=== PATIENT | male | born 1975 | race Caucasian/White ===

== ENCOUNTER → 2017-09-10 07:36 | Outpatient (CLI) | payer OTHER, SELFPAY ==
[2017-09-10 10:31] LABS: Absolute Lymphocyte Count 1.64 X10^3/ul (0.83-4.51); Absolute Neutrophil Count 3.1 X10^3/uL (2.0-7.7); Basophil# 0.03 X10^3/uL; Basophil% 0.5 % (0-1); Eosinophil# 0.26 X10^3/uL; Eosinophils% 4.6 % (0-5); Hematocrit 43.9 % (40-54); Hemoglobin 15.3 g/dl (13.0-16.5); Lymphocyte # 1.64 X10^3/ul (4.0); Lymphocyte % 29.3 % (19-41); Mean Corp Hgb Conc 34.9 g/gl (32-36); Mean Corpuscular Hgb 31.5 pg (27.0-32.0); Mean Corpuscular Volume 90.5 fL (80-94); Mean Platelet Vol. 11.1 fl (6.2-12.0); Monocyte# 0.55 X10^3/uL; Monocyte% 9.8 % (0-10); Neutrophil # 3.12 X10^3/uL (2.7-7.7); Neutrophil % 55.8 % (47-70); Platelet Count 193 K/mm3 (150-450); RBC Distribution Width CV 13.7 % (11.6-14.6); RBC Distribution Width SD 45.1 fl (35.1-43.9); Red Blood Count 4.85 M/mm3 (4.6-6.2); White Blood Count 5.6 K/mm3 (4.4-11.0)
[2017-09-10 10:47] LABS: Color, Urine Yellow (Yellow); Glucose, Dipstick Normal (Normal); Ketone-Dipstick Negative (Negative); Leukocyte Esterase-Dipstick 25 /ul (Negative); Nitrite-Dipstick Negative (Negative); Occult Blood-Urine Negative /ul (Negative); Protein-Dipstick Negative (Negative); Specific Gravity, Urine 1.015 (1.002-1.030); Urine Bilirubin Dipstick Negative (Negative); Urine Clarity Sl. Cloudy (Clear); Urine Urobilinogen 4 mg/dl (Normal)
[2017-09-10 11:13] LABS: POSITIVE COUNT NO; POSITIVE DIFFERENTIAL NO; POSITIVE MORPHOLOGY NO
[2017-09-10 11:19] LABS: AST(SGOT) 44 U/L (15-37); Alanine Aminotransfer ALT/SGPT 66 U/L (16-61); Albumin, Serum 3.4 g/dL (3.2-5.0); Alkaline Phosphatase 62 U/L (45-117); Anion Gap 7 (5-15); BUN 11 mg/dL (7-18); BUN/Creat Ratio 11.5 RATIO (10-20); Calcium,Total 8.5 mg/dL (8.5-10.1); Chloride 108 mmol/L (98-107); Cholesterol 126 mg/dL (200); Creatinine, Serum 0.96 mg/dL (0.70-1.30); EST Glomerular Filtration Rate 91 mL/min (>60); Est Glom Filt Rate - Afr Amer 110 mL/min (>60); Globulin 3.4 g/dL (2.2-4.2); Glucose 101 mg/dL (74-106); High Density Lipoprotein 33 mg/dL; Potassium 3.5 mmol/L (3.5-5.1); Protein, Total 6.8 g/dL (6.4-8.2); Sodium Level 141 mmol/L (136-145); Thyroid Stim Hormone (TSH) 2.93 uIU/mL (0.358-3.74); Triglycerides 194 mg/dL; Very Low Density Lipoprotein 39 mg/dL (5-40)
== END ==
PROVIDERS: Family Provider Family Medicine; PCP Family Medicine; Visit Provider Family Medicine
DX: Z00.00 Encounter for general adult medical examination without abnormal findings (principal); I10 Essential (primary) hypertension; E03.9 Hypothyroidism, unspecified; D50.9 Iron deficiency anemia, unspecified
CPT/HCPCS: 36415; 80053; 80061; 81002; 84443; 85025

== ENCOUNTER → 2019-03-30 08:03 | Outpatient (CLI) | payer OTHER, SELFPAY ==
[2014-08-23 12:44] VITALS: BMI 30.6
[2019-03-30 10:04] LABS: Color, Urine Yellow (Yellow); Glucose, Dipstick Normal (Normal); Ketone-Dipstick Negative (Negative); Leukocyte Esterase-Dipstick Negative /ul (Negative); Nitrite-Dipstick Negative (Negative); Occult Blood-Urine Negative /ul (Negative); Protein-Dipstick Negative (Negative); Specific Gravity, Urine 1.015 (1.002-1.030); Urine Bilirubin Dipstick Negative (Negative); Urine Clarity Sl. Cloudy (Clear); Urine Urobilinogen 4 mg/dl (Normal); Urine pH 6.5 (5.0 - 8.0)
[2019-03-30 10:10] LABS: Absolute Lymphocyte Count 1.89 X10^3/uL (0.83-4.51); Absolute Neutrophil Count 3.7 X10^3/uL (2.0-7.7); Basophil# 0.05 X10^3/uL; Basophil% 0.8 % (0-1); Eosinophil# 0.25 X10^3/uL; Hematocrit 43.7 % (40-54); Hemoglobin 14.6 g/dL (13.0-16.5); Lymphocyte # 1.89 X10^3/ul (4.0); Mean Corp Hgb Conc 33.4 g/dL (32-36); Mean Corpuscular Hgb 32.3 pg (27.0-32.0); Mean Corpuscular Volume 96.7 fL (80-94); Mean Platelet Vol. 9.8 fl (6.2-12.0); Monocyte# 0.42 X10^3/uL; Monocyte% 6.7 % (0-10); NRBC Flagged by Analyzer 0 % (0-5); Neutrophil # 3.68 X10^3/uL (2.7-7.7); Neutrophil % 58.2 % (47-70); Platelet Count 221 K/mm3 (150-450); RBC Distribution Width CV 14.7 % (11.6-14.6); RBC Distribution Width SD 52.1 fl (35.1-43.9); Red Blood Count 4.52 M/mm3 (4.6-6.2); White Blood Count 6.3 K/mm3 (4.4-11.0)
[2019-03-30 10:46] LABS: ALB/GLOB Ratio 1.1 RATIO (0.9-2.4); AST(SGOT) 41 U/L (15-37); Alanine Aminotransfer ALT/SGPT 58 U/L (16-61); Albumin, Serum 3.6 g/dL (3.2-5.0); Alkaline Phosphatase 58 U/L (45-117); Anion Gap 3 (5-15); BUN 10 mg/dL (7-18); BUN/Creat Ratio 10.7 RATIO (10-20); Calcium,Total 8.6 mg/dL (8.5-10.1); Chloride 108 mmol/L (98-107); Cholesterol 149 mg/dL (200); Creatinine, Serum 0.93 mg/dL (0.70-1.30); EST Glomerular Filtration Rate 93 mL/min (>60); Est Glom Filt Rate - Afr Amer 112 mL/min (>60); Globulin 3.2 g/dL (2.2-4.2); Glucose 103 mg/dL (74-106); High Density Lipoprotein 33 mg/dL; Iron 127 ug/dL (65-175); Potassium 3.7 mmol/L (3.5-5.1); Protein, Total 6.8 g/dL (6.4-8.2); Sodium Level 141 mmol/L (136-145); Thyroid Stim Hormone (TSH) 2.55 uIU/mL (0.358-3.74); Triglycerides 127 mg/dL; Very Low Density Lipoprotein 25 mg/dL (5-40)
== END ==
PROVIDERS: Family Provider Family Medicine; PCP Family Medicine; Referring Provider Family Medicine; Visit Provider Family Medicine
DX: Z00.00 Encounter for general adult medical examination without abnormal findings (principal); I10 Essential (primary) hypertension; E78.6 Lipoprotein deficiency; D50.9 Iron deficiency anemia, unspecified; E03.9 Hypothyroidism, unspecified
CPT/HCPCS: 36415; 80053; 80061; 81002; 83540; 84443; 85025

== ENCOUNTER → 2021-01-09 08:28 | Outpatient (CLI) | payer OTHER, SELFPAY ==
[2021-01-09 09:58] LABS: Absolute Lymphocyte Count 1.55 X10^3/uL (0.83-4.51); Absolute Neutrophil Count 3.7 X10^3/uL (2.0-7.7); Basophil# 0.06 X10^3/uL; Eosinophil# 0.31 X10^3/uL; Hematocrit 39.6 % (40-54); Hemoglobin 13.6 g/dL (13.0-16.5); Lymphocyte # 1.55 X10^3/ul (0.83-4.51); Lymphocyte % 25.1 % (19-41); Mean Corp Hgb Conc 34.3 g/dL (32-36); Mean Corpuscular Volume 113.5 fL (80-94); Mean Platelet Vol. 10.7 fl (6.2-12.0); Monocyte# 0.54 X10^3/uL; Monocyte% 8.8 % (0-10); NRBC Flagged by Analyzer 0 % (0-5); Neutrophil # 3.69 X10^3/uL (2.7-7.7); Neutrophil % 59.8 % (47-70); Platelet Count 240 K/mm3 (150-450); Red Blood Count 3.49 M/mm3 (4.6-6.2); White Blood Count 6.2 K/mm3 (4.4-11.0)
[2021-01-09 10:37] LABS: ALB/GLOB Ratio 1.1 RATIO (0.9-2.4); AST(SGOT) 45 U/L (15-37); Alanine Aminotransfer ALT/SGPT 54 U/L (16-61); Albumin, Serum 3.5 g/dL (3.2-5.0); Alkaline Phosphatase 54 U/L (45-117); Anion Gap 7 (5-15); BUN 10 mg/dL (7-18); BUN/Creat Ratio 12.4 RATIO (10-20); Calcium,Total 8.5 mg/dL (8.5-10.1); Chloride 110 mmol/L (98-107); Cholesterol 148 mg/dL (200); Creatinine, Serum 0.81 mg/dL (0.70-1.30); EST Glomerular Filtration Rate 109 mL/min (>60); Est Glom Filt Rate - Afr Amer 132 mL/min (>60); Globulin 3.3 g/dL (2.2-4.2); Glucose 88 mg/dL (74-106); High Density Lipoprotein 34 mg/dL; Potassium 3.6 mmol/L (3.5-5.1); Protein, Total 6.8 g/dL (6.4-8.2); Sodium Level 145 mmol/L (136-145); Triglycerides 110 mg/dL; Very Low Density Lipoprotein 22 mg/dL (5-40)
== END ==
PROVIDERS: PCP Family Medicine; Referring Provider Family Medicine; Visit Provider Family Medicine
DX: I10 Essential (primary) hypertension (principal); E78.6 Lipoprotein deficiency; E03.9 Hypothyroidism, unspecified; D50.9 Iron deficiency anemia, unspecified
CPT/HCPCS: 36415; 80053; 80061; 84443; 85025

== ENCOUNTER 2021-07-09 08:26 | Outpatient (CLI) | payer OTHER, SELFPAY ==
[2021-07-09 10:12] LABS: Absolute Lymphocyte Count 1.55 X10^3/uL (0.83-4.51); Absolute Neutrophil Count 3.5 X10^3/uL (2.0-7.7); Basophil# 0.07 X10^3/uL; Basophil% 1.2 % (0-1); Eosinophil# 0.23 X10^3/uL; Eosinophils% 3.9 % (0-5); Hematocrit 46.1 % (40-54); Hemoglobin 15.8 g/dL (13.0-16.5); Lymphocyte # 1.55 X10^3/ul (0.83-4.51); Lymphocyte % 26.3 % (19-41); Mean Corp Hgb Conc 34.3 g/dL (32-36); Mean Corpuscular Hgb 31.3 pg (27.0-32.0); Mean Corpuscular Volume 91.5 fL (80-94); Mean Platelet Vol. 10.6 fl (6.2-12.0); Monocyte# 0.56 X10^3/uL; Monocyte% 9.5 % (0-10); NRBC Flagged by Analyzer 0 % (0-5); Neutrophil # 3.48 X10^3/uL (2.7-7.7); Neutrophil % 58.9 % (47-70); Platelet Count 221 K/mm3 (150-450); RBC Distribution Width CV 14.4 % (11.6-14.6); RBC Distribution Width SD 48.7 fl (35.1-43.9); Red Blood Count 5.04 M/mm3 (4.6-6.2); White Blood Count 5.9 K/mm3 (4.4-11.0)
[2021-07-09 10:50] LABS: ALB/GLOB Ratio 1.1 RATIO (0.9-2.4); AST(SGOT) 39 U/L (15-37); Alanine Aminotransfer ALT/SGPT 54 U/L (16-61); Albumin, Serum 3.5 g/dL (3.2-5.0); Alkaline Phosphatase 51 U/L (45-117); Anion Gap 4 (5-15); BUN 13 mg/dL (7-18); BUN/Creat Ratio 14.3 RATIO (10-20); Calcium,Total 8.6 mg/dL (8.5-10.1); Chloride 110 mmol/L (98-107); Cholesterol 148 mg/dL (200); Creatinine, Serum 0.91 mg/dL (0.70-1.30); EST Glomerular Filtration Rate 95 mL/min (>60); Est Glom Filt Rate - Afr Amer 114 mL/min (>60); Globulin 3.3 g/dL (2.2-4.2); Glucose 106 mg/dL (74-106); High Density Lipoprotein 31 mg/dL; Iron 118 ug/dL (65-175); PSA,Total - Annual Screen 2.21 ng/mL (0.00-4.00); Potassium 3.6 mmol/L (3.5-5.1); Protein, Total 6.8 g/dL (6.4-8.2); Sodium Level 140 mmol/L (136-145); Thyroid Stim Hormone (TSH) 2.57 uIU/mL (0.358-3.74); Triglycerides 218 mg/dL; Very Low Density Lipoprotein 44 mg/dL (5-40)
== END 2021-07-09 23:59 | disposition home or self-care (01) ==
LOC: MTLAB 08:29
PROVIDERS: PCP Family Medicine; Referring Provider Family Medicine; Visit Provider Family Medicine
DX: Z00.00 Encounter for general adult medical examination without abnormal findings (principal); D50.9 Iron deficiency anemia, unspecified; I10 Essential (primary) hypertension; E78.6 Lipoprotein deficiency; D75.89 Other specified diseases of blood and blood-forming organs; Z12.5 Encounter for screening for malignant neoplasm of prostate
CPT/HCPCS: 36415; 80053; 80061; 83540; 84153; 84443; 85025; G0103

== ENCOUNTER → 2022-09-19 | Outpatient (CLI) | payer OTHER, SELFPAY ==
[2022-09-19 10:22] LABS: Absolute Lymphocyte Count 1.75 X10^3/uL (0.83-4.51); Absolute Neutrophil Count 2.9 X10^3/uL (2.0-7.7); Basophil# 0.06 X10^3/uL; Basophil% 1.1 % (0-1); Eosinophils% 5.4 % (0-5); Hematocrit 42.1 % (40-54); Hemoglobin 14.8 g/dL (13.0-16.5); Lymphocyte # 1.75 X10^3/ul (0.83-4.51); Lymphocyte % 31.6 % (19-41); Mean Corp Hgb Conc 35.2 g/dL (32-36); Mean Corpuscular Hgb 35.6 pg (27.0-32.0); Mean Corpuscular Volume 101.2 fL (80-94); Mean Platelet Vol. 10.6 fl (6.2-12.0); Monocyte# 0.53 X10^3/uL; Monocyte% 9.6 % (0-10); NRBC Flagged by Analyzer 0 % (0-5); Neutrophil # 2.89 X10^3/uL (2.7-7.7); Neutrophil % 52.3 % (47-70); Platelet Count 215 K/mm3 (150-450); RBC Distribution Width CV 15.8 % (11.6-14.6); RBC Distribution Width SD 58.3 fl (35.1-43.9); Red Blood Count 4.16 M/mm3 (4.6-6.2); White Blood Count 5.5 K/mm3 (4.4-11.0)
[2022-09-19 11:03] LABS: ALB/GLOB Ratio 1.2 RATIO (0.9-2.4); AST(SGOT) 38 U/L (15-37); Alanine Aminotransfer ALT/SGPT 43 U/L (16-61); Albumin, Serum 3.6 g/dL (3.2-5.0); Alkaline Phosphatase 51 U/L (45-117); Anion Gap 3 (5-15); BUN 11 mg/dL (7-18); BUN/Creat Ratio 12.8 RATIO (10-20); Calcium,Total 8.6 mg/dL (8.5-10.1); Chloride 111 mmol/L (98-107); Cholesterol 118 mg/dL (200); Creatinine, Serum 0.86 mg/dL (0.70-1.30); EST Glomerular Filtration Rate 101 mL/min (>60); Est Glom Filt Rate - Afr Amer 122 mL/min (>60); Globulin 3.1 g/dL (2.2-4.2); Glucose 98 mg/dL (74-106); High Density Lipoprotein 33 mg/dL; Potassium 3.8 mmol/L (3.5-5.1); Protein, Total 6.7 g/dL (6.4-8.2); Sodium Level 142 mmol/L (136-145); Thyroid Stim Hormone (TSH) 7.78 uIU/mL (0.358-3.74); Triglycerides 110 mg/dL; Very Low Density Lipoprotein 22 mg/dL (5-40)
== END | disposition home or self-care (01) ==
LOC: MTLAB 07:35
PROVIDERS: PCP Family Medicine; Referring Provider Family Medicine; Visit Provider Family Medicine
DX: Z00.00 Encounter for general adult medical examination without abnormal findings (principal); I10 Essential (primary) hypertension; E03.9 Hypothyroidism, unspecified
CPT/HCPCS: 36415; 80053; 80061; 84443; 85025

== ENCOUNTER → 2022-10-31 | Outpatient (CLI) | payer OTHER, SELFPAY ==
--- NOTE | 2022-10-31 08:23 | MRI_ITS ---
STUDY: MRI RIGHT FOREFOOT WITHOUT CONTRAST REASON FOR EXAM: Male, 47 years old. Pain in first and second toe in the plantar region. TECHNIQUE: Standardized fat and water weighted pulse sequences were obtained in all 3 orthogonal planes. COMPARISON: None. 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 Minimal hallux valgus deformity (coronal series 6 images 12-19). Focal bone marrow edema in the tibial sesamoid (axial series 9 images 15-18). Normal interphalangeal joint of the hallux. Normal proximal and distal phalanges of the great toe. Normal medial and lateral heads of the flexor hallucis brevis tendons. Normal flexor and extensor hallucis longus tendons. Mild arthrosis of the MTP and IP joints of the second through fifth digits with hammertoe deformities. Ganglion cyst lateral to the second MTP joint (coronal series 6 image 12). Normal first through fourth intermetatarsal spaces. Normal flexor and extensor tendons of the second through fifth toes. Normal visualized metatarsi. Normal intrinsic muscles of the forefoot. No soft tissue abnormality. 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 Bone marrow edema in the tibial sesamoid which may be secondary to stress-related changes. Mild arthrosis of the MTP and IP joints of the second through fifth digits with hammertoe deformities. Small ganglion cyst lateral to the second MTP joint. No other abnormality. Electronically Signed: Moe Valerio MD at 12:19 EDT ,
== END | disposition home or self-care (01) ==
PROVIDERS: PCP Family Medicine; Referring Provider Podiatrist; Visit Provider Podiatrist
DX: S89.91XA Unspecified injury of right lower leg, initial encounter (principal); M79.671 Pain in right foot
CPT/HCPCS: 73718

== ENCOUNTER → 2022-12-16 | Outpatient (CLI) | payer OTHER, SELFPAY ==
[2022-12-16 16:19] LABS: Thyroid Stim Hormone (TSH) 4.65 uIU/mL (0.358-3.74)
== END | disposition home or self-care (01) ==
PROVIDERS: PCP Family Medicine; Referring Provider Family Medicine; Visit Provider Family Medicine
DX: E03.9 Hypothyroidism, unspecified (principal)
CPT/HCPCS: 36415; 84439; 84443

== ENCOUNTER → 2023-01-16 | Outpatient (CLI) | payer OTHER, SELFPAY ==
--- NOTE | 2023-01-16 10:39 | RAD_ITS ---
STUDY: X-RAY - LEFT SHOULDER REASON FOR EXAM: Male, 47 years old. Pain in shoulders with overhead motion. TECHNIQUE: 4 views of the left shoulder. COMPARISON: None. FINDINGS: Normal glenohumeral articulation. There is hypertrophic acromioclavicular arthrosis. Normal acromion. Normal humeral head and visualized proximal humerus. The soft tissue structures are unremarkable. There is no demonstrated fracture. Normal visualized pulmonary apex. RAD/Shoulder min 2 Views IMPRESSION: Hypertrophic acromioclavicular arthrosis. Electronically Signed: Donald Barahona MD at 11:41 EDT ,
--- NOTE | 2023-01-16 10:39 | RAD_ITS ---
STUDY: X-RAY - RIGHT SHOULDER REASON FOR EXAM: Male, 47 years old. Pain in shoulders with overhead motion. TECHNIQUE: 4 views of the right shoulder. COMPARISON: None. FINDINGS: Normal glenohumeral articulation. There is hypertrophic acromioclavicular arthrosis. Normal acromion. Normal humeral head and visualized proximal humerus. The soft tissue structures are unremarkable. There is no demonstrated fracture. Normal visualized pulmonary apex. RAD/Shoulder min 2 Views IMPRESSION: Hypertrophic acromioclavicular arthrosis. Electronically Signed: Donald Barahona MD at 11:43 EDT ,
== END | disposition home or self-care (01) ==
LOC: MTRAD 10:38
PROVIDERS: PCP Family Medicine; Referring Provider Family Medicine; Visit Provider Family Medicine
DX: M25.511 Pain in right shoulder (principal); M25.512 Pain in left shoulder
CPT/HCPCS: 73030

== ENCOUNTER → 2023-03-03 | Outpatient (CLI) | payer OTHER, SELFPAY ==
[2023-03-03 11:01] LABS: Absolute Lymphocyte Count 2.13 X10^3/uL (0.83-4.51); Absolute Neutrophil Count 5.3 X10^3/uL (2.0-7.7); Basophil# 0.06 X10^3/uL; Basophil% 0.7 % (0-1); Eosinophil# 0.09 X10^3/uL; Eosinophils% 1.1 % (0-5); Hematocrit 48.1 % (40-54); Hemoglobin 15.9 g/dL (13.0-16.5); Lymphocyte # 2.13 X10^3/ul (0.83-4.51); Lymphocyte % 25.9 % (19-41); Mean Corp Hgb Conc 33.1 g/dL (32-36); Mean Corpuscular Volume 102.8 fL (80-94); Mean Platelet Vol. 10.2 fl (6.2-12.0); Monocyte% 7.3 % (0-10); NRBC Flagged by Analyzer 0 % (0-5); Neutrophil # 5.29 X10^3/uL (2.7-7.7); Neutrophil % 64.5 % (47-70); Platelet Count 223 K/mm3 (150-450); RBC Distribution Width CV 13.7 % (11.6-14.6); RBC Distribution Width SD 52.4 fl (35.1-43.9); Red Blood Count 4.68 M/mm3 (4.6-6.2); White Blood Count 8.2 K/mm3 (4.4-11.0)
[2023-03-03 11:52] LABS: ALB/GLOB Ratio 1.2 RATIO (0.9-2.4); AST(SGOT) 29 U/L (15-37); Alanine Aminotransfer ALT/SGPT 45 U/L (16-61); Albumin, Serum 3.8 g/dL (3.2-5.0); Alkaline Phosphatase 67 U/L (45-117); Anion Gap 4 (5-15); BUN 12 mg/dL (7-18); BUN/Creat Ratio 13.2 RATIO (10-20); Calcium,Total 8.9 mg/dL (8.5-10.1); Chloride 106 mmol/L (98-107); Creatinine, Serum 0.91 mg/dL (0.70-1.30); EST Glomerular Filtration Rate 95 mL/min (>60); Est Glom Filt Rate - Afr Amer 115 mL/min (>60); Globulin 3.3 g/dL (2.2-4.2); Glucose 77 mg/dL (74-106); Potassium 3.9 mmol/L (3.5-5.1); Protein, Total 7.1 g/dL (6.4-8.2); Sodium Level 140 mmol/L (136-145)
== END | disposition home or self-care (01) ==
PROVIDERS: PCP Family Medicine; Referring Provider Family Medicine; Visit Provider Family Medicine
DX: Z01.818 Encounter for other preprocedural examination (principal)
CPT/HCPCS: 36415; 80053; 85025

== ENCOUNTER 2023-03-28 06:06 | Day surgery (SDC) | payer OTHER, SELFPAY ==
[2023-03-28] VITALS (9 sets, daily range): BP systolic 125–171; BP diastolic 71–108; PULSE 17–83; RESP 16–88; TEMP 36.1–36.6; O2SAT 94–97; BMI 34.1
--- OUTSIDE RECORDS SUMMARY | 2023-03-28 06:09 | XMS RPT_ITS | CCD ---
Author Name Unknown Address [address] [place] [address] Organization [facility] Care Team Providers Care Plaster Machine Tender Name Role Phone Anup Lewis MD Primary Care Provider Medications Completed/Discontinued Medications Medication Drug Class(es) Dates Sig (Normalized) Sig (Original) codeine phosphate 2 mg/ml / guaiFENesin 20 mg/ml oral solution (8 sources) Opioid Agonist Start: 06-02-2015 take 5-10 mL by mouth four times daily as needed for cough codeine-guaiFENesi n (ROBITUSSIN AC) 10-100 mg/5 mL syrup Indications: Viral URI with cough Take 5-10 mL by mouth four times daily as needed for Cough. May cause drowsiness. 120 mL 0 04/07/2016 Active Problems Active Problems Problem Classification Problem Date Documented Da te Episodic/Chronic Essential hypertension (4 sources) Hypertensive disorder; Translations: [Essential (primary) hypertension] Onset: 08-19-2014 08-19-2014 Chronic Other endocrine disorders (4 sources) Testicular hypofunction; Translations: [Testicular hypofunction] Onset: 03-05-2005 03-05-2005 Chronic Other upper respiratory disease (4 sources) Allergic rhinitis; Translations: [Allergic rhinitis, unspecified] 12-19-2004 Chronic Substance-related disorders (4 sources) Tobacco user; Translations: [Nicotine dependence, unspecified, uncomplicated] 12-19-2004 Chronic Thyroid disorders (5 sources) Hypothyroidism; Translations: [Hypothyroidism, unspecified] Onset: 08-19-2014 08-19-2014 Chronic Past or Other Problems Problem Classification Problem Date Documented Da te Episodic/Chronic Abdominal pain (4 sources) Abdominal pain; Translations: [Unspecified abdominal pain] Onset: 08-19-2014 08-19-2014 Episodic Biliary tract disease (4 sources) Cholecystitis; Translations: [Cholecystitis, unspecified] Onset: 08-29-2014 08-29-2014 Episodic Contraceptive and procreative management (4 sources) Patient encounter status; Translations: [Encounter for sterilization] Onset: 11-14-2008 11-14-2008 Episodic Results Test Name Value Interpretation Reference Range Facil ity Vital Signs Date Time Vital Sign Value Performing Clinician Faci lity 06-11-2021 16:52-0400 Body temperature 97.81 [degF] Anup Lewis MD Work Phone: [facility] 06-11-2021 16:52-0400 Body weight 126.61 kg Anup Lewis MD Work Phone: [facility] 06-11-2021 16:52-0400 Diastolic blood pressure 71 mm[Hg] Anup Lewis MD Work Phone: [facility] 06-11-2021 16:52-0400 Heart rate 79 /min Anup Lewis MD Work Phone: [facility] 06-11-2021 16:52-0400 Respiratory rate 14 /min Anup Lewis MD Work Phone: [facility] 06-11-2021 16:52-0400 Systolic blood pressure 135 mm[Hg] Anup Lewis MD Work Phone: [facility] Encounters Encounter Date Encounter Type Care Provider Facility Start: 08-05-2022 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 Work Phone: Pain Management Plan of Treatment Date Care Activity Detail Author Start: 11-29-2022 Influenza vaccination INFLUENZA (Sea son Ended) [facility] Start: 03-31-2022 [facility] Start: 11-29-2021 Influenza vaccination INFLUENZA (#1) [facility] Start: 03-31-2021 [facility] Start: 2019 COLOGUARD (FIT-DNA) COLOGUARD (FIT-D NA) [facility] Start: 2019 Colonoscopy COLONOSCOPY [facility] Start: 2019 COLORECTAL CANCER SCREENING COLORECTAL CANCER SCREENING [facility] Start: [address] COLONOGRAPHY [facility] Start: 2019 DIABETES SCREEN DIABETES SCREEN [facility] Start: 2019 FECAL OCCULT BLOOD FECAL OCCULT BLOO D [facility] Start: 2019 SIGMOIDOSCOPY SIGMOIDOSCOPY [facility] Start: 03-06-2010 LIPID SCREEN LIPID SCREEN [facility] Start: 1993 Urine microalbumin profile DTAP,TDAP ,TD (1 - Tdap) [facility] Start: 02-24-1992 HIV SCREENING HIV SCREENING [facility] Start: 1986 Adult depression scr eening assessment DEPRESSION SCREENING [facility] Start: 1974 COVID-19 VACCINE (#1) COVID-19 VACCI NE (#1) [facility] Start: 1974 HEPATITIS B (1 of 3 - 3-dose series) HEPATITIS B (1 of 3 - 3-dose series) [facility] Immunizations Immunization Date Immunization Notes Care Provider Min bejarano 02-06-2010 influenza virus vacc ine, live, attenuated, for intranasal use Anup Lewis MD Work Phone: [facility] Payers Date Payer Category Payer Private Health Insurance [facility] [employer] [id number] 2018-Present [phone] [address] [place] [address] [facility] [id number] Social History Date Type Detail Facility Start: 08-19-2014 Tobacco smoking stat us OKIS Never smoked tobacco [facility] Work Phone: History of tobacco use Cigarette Smoker [facility] Work Phone: Start: 08-19-2014 Tobacco use and exposure Former smokeless tobacco user [facility] Work Phone: History of tobacco use Chews Tobacco [facility] Work Phone: Start: 04-07-2016 Alcohol intake Current drinke r of alcohol (finding) [facility] Start: 04-07-2016 Alcohol intake [facility] Start: 08-19-2014 History SDOH Alcohol Comment one drink every few months [facility] Start: 08-19-2014 Tobacco Comment stoped smokles s tobacco 10 years ago [facility] Start: 1975 Sex Assigned At Not on file [facility] Note 08-05-2022 Telephone Encounter - Morena Millan LPN - 08/05/2022 11:32 AM EDT Note Date & Type Note Facility 08-05-2022 Miscellaneous Notes Formattin g of this note is different from the original. Pharmacy [facility] message requesting the following refill. Requested Prescriptions Pending Prescriptions Disp Refills metoprolol succinate ER (TOPROL XL) 25 mg 24 hr tablet [Pharmacy Med Name: Metoprolol Succinate ER 25 MG Oral Tablet Extended Release 24 Hour] 90 tablet 0 Sig: TAKE 1 TABLET BY MOUTH ONCE DAILY lisinopril (ZESTRIL) 5 mg tablet [Pharmacy Med Name: Lisinopril 5 MG Oral Tablet] 90 tablet 0 Sig: TAKE 1 TABLET BY MOUTH ONCE DAILY Patient last appointment: 06/11/2021 Patient Phone numbers: There are no phone numbers on file. Request is for script(s) to be escript to mail order [facility]. Morena Millan LPN documented in this encounter [facility] Note 02-04-2022 Telephone Encounter - Morena Millan LPN - 02/04/2022 1:31 PM EST Note Date & Type Note Facility 02-04-2022 Miscellaneous Notes Formattin g of this note might be different from the original. Per Brian Kaba APRN patient is due for blood work to check his thyroid TSH level. Brian refilled patient Levothyroxine but said Alexei needs to get his TSH checked. I called patient and he did not answer. I left a message for patient to return call to office. Morena Millan LPN February 04, 2022 1:33 PM documented in this encounter [facility] Evaluation note Note Date & Type Note Facility documented in this encounter [facility] Summary Purpose Family History No Family History Records FoundNo Family History Records Found Advance Directives No Advanced Directives Records FoundNo Advanced Directives Records Found Additional Source Comments (unrecognized sect ion and content) No Status Records FoundNo Status Records Found INFORMATION SOURCE (unrecogn ized section and content) DATE CREATED AUTHOR AUTHOR'S ONESIMO GRACE 03/02/2022 [facility] Ce nter Source Comments (unrecognize d section and content) In the event this informatio n is protected by the Federal Confidentiality of Alcohol and Drug Abuse Patient Records regulations: The Federal rules restrict any use of the information to criminally investigate or prosecute any alcohol or drug abuse patient.[facility] the event this information is protected by the Federal Confidentiality of Alcohol and Drug Abuse Patient Records regulations: The Federal rules restrict any use of the information to criminally investigate or prosecute any alcohol or drug abuse patient.[facility] the event this information is protected by the Federal Confidentiality of Alcohol and Drug Abuse Patient Records regulations: The Federal rules restrict any use of the information to criminally investigate or prosecute any alcohol or drug abuse patient.[facility] the event this information is protected by the Federal Confidentiality of Alcohol and Drug Abuse Patient Records regulations: The Federal rules restrict any use of the information to criminally investigate or prosecute any alcohol or drug abuse patient.[facility] Care Teams (unrecognized sec tion and content) Plaster Machine Tender Relationship Specialty Start Date End Date Anup Lewis MD PCP - General Family Medicine 02/19/11 Plaster Machine Tender Relationship Specialty Start Date End Date Anup Lewis MD PCP - General Family Medicine 02/19/11 Reason for Visit (unrecogniz ed section and content) Reason Comments Refill Request FOR RECORDS PERTAINING TO PATIENTS WHO ARE OR HAVE BEEN ENROLLED IN A CHEMICAL DEPENDENCY/SUBSTANCEABUSE PROGRAM, SOME INFORMATION MAY BE OMITTED. This clinical summary was aggregated from multiple sources. Caution should be exercised in using it in the provision of clinical care. This summary normalizes information from multiple sources, and as a consequence, information in this document may materially change the coding, format and clinical context of patient data. In addition, data may be omitted in some cases. CLINICAL DECISIONS SHOULD BE BASED ON THE PRIMARY CLINICAL RECORDS. [facility]. provides no warranty or guarantee of the accuracy or completeness of information in this document.
--- NOTE | 2023-03-28 06:30 | RAD_ITS ---
STUDY: INTRAOPERATIVE FLUOROSCOPY TECHNIQUE: The examination was performed with referring physician in attendance. Under fluoroscopic observation, fluoroscopic images were obtained. Radiologist was not present for the study. Radiologist did not perform the procedure. This dictation is for documentation of the radiation dosage only. There is no interpretation of the images. TOTAL NUMBER OF IMAGES: 1 COMPARISON: None RADIATION DOSE: 0.139 mGy FLUOROSCOPY TIME: .28 seconds REASON FOR EXAM: ARTHRODESIS OF RT SECOND HAMMER TOE Male, 48 years old. FINDINGS: Screw through the second digit. RAD/Foot min 3 Views IMPRESSION: Fluoroscopic assistance images were obtained. Dictation for documentation purposes only. Electronically Signed: Luis Angela MD at 14:28 EST ,
[2023-03-28] MEDS: Lactated Ringers 1,000 ML 15 ML IV (06:32)
--- NOTE | 2023-03-28 07:30 | BON_PTH ---
PATHOLOGY RESULTS PATIENT: GRACIELA JAIN LOC: [facility] [place] U#:[id number] AGE/SX: 48/M ROOM: RE03/28/[address]: Dr. Moshe Cantor DPM : 1975 BED: DIS: 03/28/2023 SPEC #: [id number] RECD: 03/28/23 12:06 STATUS: SHIVAM PAULA #: [id number] SHORTY: 03/28/23 07:[address]: Moshe Cantor DEPT: SURGICAL PATHOLOGY RECD BY: Anabella Delgado ENTERED: 03/28/23 12:08 SP TYPE: Bone OTHR DR: Dr. Lexy Elizondo MD Tissues: Toe, NOS Toe, NOS Soft tissues, NOS Procedures: Decalcification bone/plaque Surgery Specimen Level III Surgery Specimen Level IV HEADER OPERATION: Arthrodesis of second right hammertoe PRE-OP DIAGNOSIS: Left second hammertoe, torn second metatarsophalangeal plantar plate/flexor tendon, deformed second metatarsal, first metatarsophalangeal arthritis TISSUE SUBMITTED: A - Bunion bone, B - Hammertoe, C - Debrided plantar plate MICROSCOPIC DIAGNOSIS A. Bone bunion, not further specified, excision: Osseocartilaginous tissue with focal reactive and reparative change (clinically bunion). B. Hammertoe, not further specified, excision: Osseocartilaginous tissue consistent with hammertoe. C. Plantar plate, debridement: Benign fibrotendinous tissue. AM:shanti 04/03/2023 MICROSCOPIC DESCRIPTION Slides are reviewed. GROSS DESCRIPTION A - Received in fixative is one container labeled with the patient's name and designated bunion bone. The specimen consists of multiple pieces of bone that in aggregate measure 5.0 x 2.5 x 0.4 cm. The entire specimen is submitted in two cassettes after decalcification. B - Received in fixative is one container labeled with the patient's name and designated hammertoe. The specimen consists of a piece of bone measuring 1.2 x 1.0 x 0.7 cm. The specimen is bisected and submitted entirely in one cassette after decalcification. C - Received in fixative is one container labeled with the patient's name and designated debrided plantar plate. The specimen consists of two pieces of bone measuring 1.0 x 1.0 x 0.3 cm. The entire specimen is submitted in one cassette after decalcification. / VISHAL:shanti 03/28/2023 TC:5 CPT: 89374 x2, 71881, 64119 x2
[2023-03-28] MEDS: Cefazolin 3 GM in 0.9% Normal Saline (100mL Bag) 100 ML IV (07:38)
[2023-03-28] MEDS: Bupivacaine Mpf 0.5% 30 ML VIAL (09:55)
--- NOTE | 2023-03-28 10:50 | DCINST_ITS ---
Discharge Instructions Diet Discharge Diet: Light diet - advance as tolerated Activity Discharge Activity: May Not Drive and Use Crutches Weight Bearing Status: No weight bearing (No weightbearing right foot) Keep extremity elevated above heart level: Right Leg (Keep right foot elevated for at least 50 minutes of every hour) Dressing / Incision Call your doctor if your incision/area has: Continuous Slow Oozing, Sudden Increased Bleeding and Foul Smelling Discharge Call your doctor if you observe: Fever of 101 or Higher, Shortness of breath, Chest pain, Increased palpitations (irregular heartbeat), Calf discomfort and Uncontrolled pain Change Dressing in: do not change dressing Remove Dressing in: do not remove dressing Cleanse incision/area with: Keep Dressing Clean & Dry Follow Up Care Please Follow Up With: Moshe Cantor DPM When: 1 week in office at [facility], sooner if needed Test Results: Test results from this visit will be discussed in further detail at your follow- up appointment, if applicable. Discharge Plan Admission Attending Provider: Moshe Cantor Primary Care Provider: Lexy Elizondo Discharge Orders/Prescriptions Prescriptions: New oxycodone-acetaminophen [Percocet] 5-325 mg tablet 1 - 2 tab PO Q6H PRN (Reason: pain) 4 Days Qty: 24 0RF No Action levothyroxine 75 MCG tablet 150 mcg PO DAILY Patient Comments: thyroid metoprolol succinate 25 MG tablet 25 mg PO 1500 Patient Comments: high blood pressure/heart losartan 25 mg tablet 25 mg PO 1500 Referrals / Follow Up: Lexy Elizondo MD [Primary Care Provider] - Disposition Disposition (needs filled in before D/C Order can be placed): Home, Self Care
--- NOTE | 2023-03-28 10:51 | PCM.OPRPT ---
Report of Operation Date of Procedure: 03/28/23 Pre-Operative Diagnosis: Right Foot: 2nd digit hammer toe, deformed 2nd metatarsal, 2nd metatarsal phalangeal joint plantar plate flexor tendon tear, bunion/DJD of the 1st metatarsal phalangeal joint Post-Operative Diagnosis: Same Surgery/Procedure Performed:: Right foot: Arthrodesis 2nd toe, 2nd metatarsal osteotomy, repair of 2nd metatarsal phalangeal joint plantar plate flexor tendon, 1st metatarsal phalangeal joint cheilectomy arthroplasty Surgeon: Moshe Cantor truck driving instructor: Type of Anesthesia: General Specimen's removed: Bone from right 1st metatarsal phalangeal joint - sent to pathology Bone from right 2nd toe - sent to pathology debrided tissue from 2nd metatarsal phalangeal joint plantar plate - sent to pathology Estimated Blood Loss (mL): 10mL Description of Procedure: Indications: This is a 48 year old gentleman with chronic right foot pain despite nonsurgical treatment. Since symptoms persist despite nonsurgical care, we discussed surgical options. Reviewed the procedures, possible benefits vs risks, goals, expectations, and estimated healing time. He expressed understanding and agreement. No guarantees were given nor implied. No warranties were given. Patient freely signed the consent forms and elected to proceed forward with the procedures. Of note he relates he does recall an injury to the right foot a couple of years ago which caused a burning pain to the 2nd toe, but he kept going and did not seek medical attention at that time. Operative procedure: He was brought back into the operating room and was placed on the operating room table in the supine position. A timeout was performed and the patient was properly identified and the surgical plan was confirmed. The patient did receive 3 g of IV Ancef for antibiotic prophylaxis. The patient received general anesthesia per the anesthesia team. A well padded pneumatic tourniquet was applied around the right ankle. A total of 10mL of 0.25% Bupivacaine plain was given as a local nerve block around the right foot 1st and 2nd rays after the overlying skin was cleansed with 70% Isopropyl alcohol. The right foot was scrubbed, prepped and draped in the usual aseptic fashion. Further attention was directed to the right foot. There was noted to be positive dorsal drawer to the 2nd metatarsal phalangeal joint. The 2nd toe was severely contracted and was a hammer toe. The 2nd toe was very long and there was deformity. There was limited 1st metatarsal phalangeal joint range of motion with dorsal medial eminence. The right foot was exsanguinated using an Esmarch bandage and the right ankle pneumatic tourniquet was inflated to 250mmHg. Right 1st metatarsal phalangeal joint cheilectomy arthroplasty: A linear longitudinal skin incision was made to the dorsal 1st metatarsal phalangeal joint just medial to the extensor hallucis longus tendon using a 15 blade. Careful dissection was completed down to the 1st metatarsal phalangeal joint capsule where the capsule was incised using a 15 blade, the capsule was partially reflected exposing the joint, the cartilage was intact and viable. There was exostosis to the dorsal and medial aspect of the 1st metatarsal head which was preventing range of motion to the toe and also causing pain. The dorsal and medial exostosis was resected and was sent to pathology for further evaluation. It was also noted the medial capsule of the joint was very attenuated. There was smooth gliding range of motion to the joint at this point. The site was flushed out with copious amounts of normal saline solution. A capsulorraphy was completed to the medial capsule using 0 vicryl. The toe was in good position. The joint capsule was reapproximated using 3-0 Vicryl. The subcutaneous tissue was reapproximated using 3-0 Vicryl and the skin was reapproximated using 4-0 Monocryl. Right 2nd metatarsal osteotomy: A curvilinear skin incision was made overlying the dorsal 2nd metatarsal phalangeal joint using a 15 scalpel blade. Careful dissection was completed down through the subcutaneous tissue layer. The extensor tendons were identified and it was noted the extensor digitorum longus tendon was significantly contracted, so it was lengthened via a Z lengthening using a 15 blade. The dorsal 2nd metatarsal phalangeal joint capsule was incised with a 15 blade. The metatarsal head was visualized. There was noted to be significant adhesions to the plantar aspect of the joint at the level of the plantar plate, with lateral plantar plate tear. The 2nd metatarsal was deformed being long, but otherwise the joint did appear to be healthy and viable. A conchis osteotomy was completed through the distal 2nd metatarsal using a powered sagittal saw, being sure to make the osteotomy parallel to the weightbearing surface. The 2nd metatarsal head was gently placed in a more proximal position and the osteotomy site was fixated using four Arthrex snap off screws using rigid open reduction internal fixation technique. There was excellent stability and fixation to the osteotomy site. Intraoperative fluoroscopy was used to confirmed proper positioning and fixation. The site was flushed out with copious amounts of normal saline solution. The extensor tendon was reapproximated in the lengthened position using 3-0 vicryl at the appropriate tension after the 2nd digit toe arthrodesis was completed. The joint capsule was reapproximated using 3-0 Vicryl. The subcutaneous tissue was reapproximated using 3-0 Vicryl and the skin was reapproximated using 4-0 Monocryl. Right 2nd toe arthrodesis: Attention was directed to the toe. A dorsal linear longitudinal incision was made over the proximal interphalangeal joint (PIPJ) of the toe. An incision was made longitudinally to the extensor digitorum longus tendon which was lengtened as noted above, this was done with a 15 blade. The dorsal PIPJ joint capsule was incised with a 15 blade. The head the proximal phalanx was resected using a powered sagittal saw, and cartilage from the base of the middle phalanx was resected using a sagittal saw. The site was flushed out with copious amounts of normal saline solution. An Arthrex 2.5mm FT compression screw was placed through the phalanges of the toe holding the toe in rectus position, there was good bone to bone contact. This was confirmed with intra operative fluoroscopy. The site was again flushed out with copious amounts of normal saline solution. The skin was reapproximated using 4-0 Monocryl. Right 2nd metatarsal phalangeal joint plantar plate repair: A linear skin incision was made overlying the plantar 2nd metatarsal phalangeal joint using a 15 scalpel blade. Careful dissection was completed down through the subcutaneous tissue layer. The flexor tendon sheath was identified, there were some adhesions noted. The sheath was incised carefully being sure not to incision the tendons, and the adhesions of the flexor tendons were released (tenolysis). Otherwise the flexor tendons appeared healthy and viable, and they were retracted safely out of the way. The plantar plate was visualized and there was noted to be thickening, there was noted to be a tear of the lateral plantar plate. There was instability of the plantar plate when stressing it. The plantar plate edges were debrided and the plantar plate was repaired using 2 FiberWire via a pants over vest suturing technique. This was repair holding the 2nd toe in a slight plantarflexed position. At this time there was noted to be negative dorsal drawer test, and now there was excellent stability present to the plantar plate. Alignment of the joint was anatomic, and position of the 2nd toe was rectus in all planes when loading the foot. The site was flushed out with copious amounts of normal saline solution. The joint capsule was reapproximated using 0 Vicryl. The subcutaneous tissue was reapproximated using 3-0 Vicryl and the skin was reapproximated using 3-0 Nylon. The pneumatic tourniquet was deflated (total tourniquet time was 120 minutes, and there was immediate return of warmth and perfusion to the foot, including to all 5 toes. CFT < 2 seconds to all toes. A dressing was applied which consisted of cavilon to incision sites and steristrips, then Betadine soaked adaptic, 4x4 gauze, Kerlix and nia bandage. A well padded below knee posterior splint was applied as well. Of note all vital structures, including all vital neurovascular structures were properly identified, they were protected and retracted as necessary throughout the above procedures. Hemostasis was achieved prior to dressing application. The patient tolerated the above procedure well and the anesthesia well with no complications. The patient was transported from the operating room to the recovery room with vital signs stable and in good condition. Post operative orders were placed, post operative instructions were reviewed with the patient and his - no weightbearing right foot, keep right foot elevated for at least 50 minutes of every hour, keep dressing clean, dry and intact, follow up with me within 1 week in office - sooner if needed. This was typed out and these written instructions were also reviewed with patient and given to patient to take home. Percocet 5/325mg PO 1-2 tabs q 6 hours, and also can take Ibuprofen 400mg PO q 6 hours to help with post op pain control. This was discussed with patient as well. OARRS was checked prior to prescribing. Grafts/Implants Used: 4 x arthrex snap off screws, 1 x arthrex ft screw Complications None
--- NOTE | 2023-03-28 11:50 | RAD_ITS ---
STUDY: X-RAY - RIGHT FOOT CLINICAL: Male, 48 years old. post op TECHNIQUE: 3 view(s) of the foot. COMPARISON: None. FINDINGS: Normal talus, calcaneus, and tarsal bones. Normal visualized subtalar, talonavicular, calcaneocuboid, tarsal and tarsometatarsal articulations. There is demineralization of the metatarsi. Mild degenerative changes of the metatarsophalangeal joint and bunion deformity with mild hallux valgus deformity. Normal tibial and fibular sesamoid bones. Normal interphalangeal joint of the great toe. Normal phalanges of the great toe. There is osseous anchors and cortical screws within the head of the second metatarsal. Cortical screw within the second digit consistent with joint effusion. No evidence of hardware failure. The soft tissue structures are unremarkable. RAD/Foot min 3 Views IMPRESSION: Hardware and degenerative changes as above with no evidence of hardware failure or evidence of acute fracture. Electronically Signed: Arnold Villa DO at 13:43 EST ,
== END 2023-03-28 13:35 | disposition home or self-care (01) ==
LOC: SDC 06:06 → AC 06:08
PROVIDERS: PCP Family Medicine; Referring Provider Podiatrist; Visit Provider Podiatrist
PROC: (CPT 28899; principal; 2023-03-28 07:15)
DX: M20.41 Other hammer toe(s) (acquired), right foot (principal); M21.611 Bunion of right foot; M19.071 Primary osteoarthritis, right ankle and foot; E03.9 Hypothyroidism, unspecified; I10 Essential (primary) hypertension; Z79.899 Other long term (current) drug therapy; Z87.891 Personal history of nicotine dependence
CPT/HCPCS: 28485; 28308; 28200; 01480; 73630; 76000; 88304; 88305; 88311; C1713; J7120; J2405

== ENCOUNTER → 2023-05-08 | Outpatient (CLI) | payer OTHER, SELFPAY ==
--- OUTSIDE RECORDS SUMMARY | 2023-05-08 18:05 | XMS RPT_ITS | CCD ---
Author Name Unknown Address [address] [place] [address] Organization [facility] Care Team Providers Care Scullion Chief Name Role Phone Anup Lewis MD Primary [...] 97.81 [degF] Anup Lewis MD Work Phone: [facility] 06-11-2021 16:52-0400 Body weight 126.61 kg Anup Lewis MD Work Phone: [facility] 06-11-2021 16:52-0400 Diastolic blood pressure 71 mm[Hg] Anup Lewis MD Work Phone: [facility] 06-11-2021 16:52-0400 Heart rate 79 /min Anup Lewis MD Work Phone: [facility] 06-11-2021 16:52-0400 Respiratory rate 14 /min Anup Lewis MD Work Phone: [facility] 06-11-2021 16:52-0400 Systolic blood pressure 135 mm[Hg] Anup Lewis MD Work Phone: [facility] Encounters Encounter Date Encounter Type Care Provider Facility Start: 08-05-2022 Marcus dent APRN.FRAMING INSPECTOR Work Phone: Pain Management Plan of Treatment Date Care Activity Detail Author Start: 11-29-2022 Influenza vaccination INFLUENZA (Sea son Ended) [facility] Start: 03-31-2022 [facility] Start: 11-29-2021 Influenza vaccination INFLUENZA (#1) [facility] Start: 03-31-2021 DEPRESSION [facility]ESSMENT [facility] Start: 2019 COLOGUARD (FIT-DNA) COLOGUARD (FIT-D NA) [facility] Start: 2019 Colonoscopy COLONOSCOPY [facility] Start: 2019 COLORECTAL CANCER SCREENING COLORECTAL CANCER SCREENING [facility] Start: [address] COLONOGRAPHY [facility] Start: 2019 DIABETES SCREEN DIABETES SCREEN [facility] Start: 2019 FECAL OCCULT BLOOD FECAL OCCULT BLOO D [facility] Start: 2019 SIGMOIDOSCOPY SIGMOIDOSCOPY [facility] Start: 03-06-2010 LIPID SCREEN LIPID SCREEN [facility] Start: 1993 Urine microalbumin profile DTAP,TDAP ,TD (1 - Tdap) [facility] Start: 02-24-1992 HIV SCREENING HIV SCREENING [facility] Start: 1986 Adult depression scr eening assessment DEPRESSION SCREENING [facility] Start: 1974 COVID-19 VACCINE (#1) COVID-19 VACCI NE (#1) [facility] Start: 1974 HEPATITIS B (1 of 3 - 3-dose series) HEPATITIS B (1 of 3 - 3-dose series) [facility] Immunizations Immunization Date Immunization Notes Care Provider Min bejarano 02-06-2010 influenza virus vacc ine, live, attenuated, for intranasal use Anup Lewis MD Work Phone: [facility] Payers Date Payer Category Payer Private Health Insurance [facility] CHO[facility] PLUS [id number] 2018-Present [phone] [address] [place] [address] [facility] [id number] Social History Date Type Detail Facility Start: 08-19-2014 Tobacco smoking stat us RIIS Never smoked tobacco [facility] Work Phone: History of tobacco use Cigarette Smoker C [facility] Work Phone: Start: 08-19-2014 Tobacco use and exposure Former smokeless tobacco user [facility] Work Phone: History of tobacco use Chews Tobacco [facility] Work Phone: Start: 04-07-2016 Alcohol intake Current drinke r of alcohol (finding) [facility] Start: 04-07-2016 Alcohol intake [facility] Start: 08-19-2014 History SDOH Alcohol Comment one drink every few months [facility] Start: 08-19-2014 Tobacco Comment stoped smokles s tobacco 10 years ago [facility] Start: 1974 Sex Assigned At Not on file [facility] Note 08-05-2022 Telephone Encounter - Morena Millan LPN - 08/05/2022 11:32 AM EDT Note Date & Type Note Facility 08-05-2022 Miscellaneous Notes Formattin g of this note is different from the original. Pharmacy [facility] message requesting the following refill. Requested Prescriptions [...] Morena Millan LPN documented in this encounter [facility] Note 02-04-2022 Telephone Encounter - Morena Millan [...] 2022 1:33 PM documented in this encounter [facility] Evaluation note Note Date & Type Note Facility documented in this encounter [facility] Summary Purpose Family History No Family History Records FoundNo Family History Records Found Advance Directives No Advanced Directives Records FoundNo Advanced Directives Records Found Additional Source Comments (unrecognized sect ion and content) No Status Records FoundNo Status Records Found INFORMATION SOURCE (unrecogn ized section and content) DATE CREATED AUTHOR AUTHOR'S ONESIMO GRACE 03/02/2022 [facility] Ce nter Source Comments (unrecognize d section and content) In the event this informatio n is protected by the Federal Confidentiality of Alcohol and Drug Abuse Patient Records regulations: The Federal rules restrict any use of the information to criminally investigate or prosecute any alcohol or drug abuse patient.[facility] the event this information is protected by the Federal Confidentiality of Alcohol and Drug Abuse Patient Records regulations: The Federal rules restrict any use of the information to criminally investigate or prosecute any alcohol or drug abuse patient.[facility] the event this information is protected by the Federal Confidentiality of Alcohol and Drug Abuse Patient Records regulations: The Federal rules restrict any use of the information to criminally investigate or prosecute any alcohol or drug abuse patient.[facility] the event this information is protected by the Federal Confidentiality of Alcohol and Drug Abuse Patient Records regulations: The Federal rules restrict any use of the information to criminally investigate or prosecute any alcohol or drug abuse patient.[facility] Care Teams (unrecognized sec tion and content) Scullion Chief Relationship Specialty Start Date End Date Anup Lewis MD PCP - General Family Medicine 02/19/11 Scullion Chief Relationship Specialty Start Date End Date Anup [...] BE BASED ON THE PRIMARY CLINICAL RECORDS. [facility]. provides no warranty or guarantee of the accuracy or completeness of information in this document.
== END | disposition home or self-care (01) ==
PROVIDERS: PCP Family Medicine; Referring Provider Podiatrist; Visit Provider Podiatrist
DX: L03.90 Cellulitis, unspecified (principal)
CPT/HCPCS: 87070; 87075; 87077; 87186; 87205

== ENCOUNTER 2023-06-16 08:30 | Outpatient (RCR) | payer OTHER, SELFPAY ==
--- NOTE | 2023-05-30 09:21 | HP.PTEVAL ---
Patient's Visit Information Visit Information Visit Information: GRACIELA JAIN is a 48 year old M referred to Physical Therapy by Dr. Moshe Cantor DPM with a diagnosis of s/p R hammer toe correction MTPJ plate repair.. Date of Evaluation: 05/30/23 Physical Therapist: Juvencio Montgomery, KENDYT, OCS, CSCS Visit Plan Frequency: 1-2x /Week Duration: 4-6 Weeks Plan: 1-2x/week, 4-6 weeks as needed(pt wants to keep minimum due to poor insurance.) ROM, strength, proprioceptive and gait exercises for progression of funciton Today: toe curls, seated heel raises, gastroc soleus stretch, seated heel raises 2x/day Next: ankle 4 way, standing heel raises, sls reach medial, step and recover and ensure weaning of boot. Subjective Subjective: 03/28/24 R foot surgery fixing tendon on toesand fixed hammer toe. 4 screws. In a boot for two months. Surgery helped, has had no no pain. is currently weaning out of boot at 3 hrs day out of boot and just gets a little sore in the evening in big toe. Feels like he limps a little bit but did prior to surgery. Sleep is OK. 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 Has been off since 03/17. Schedule day back 06/26. Hobbies 3 kids 20, 18, 15. Travel volleyball Basic ADLs, all Ok right now. Pain R big toe: Pain Intensity (Out of 10): 0 Pain Intensity Range: 0 and 3 Objective Objective: Ambulates into PT with shoes on and no boot and I with some outside of R foot WB and avoids push off on R. I gait. Transfers bed and chair I albeit slow to bed due to back stiffness whcih is way improved from 2 weeks ago. R big toe extension to 20 degrees and flexion to 15 degrees sore to move it, 2nd toes with very little movement on R foot. Incisions bottom and top of foot healed well and not overly scarred. Not tender. Ankles Df -3 B and very tight in gastroc and soleus. Inv/ev/PF symmetrical and WFL. stregnth ankle 4+/5 B without pain. strength big toe is flexion 4- adn ext 4- vs 4+ on L. reflexes 2/3 patella and achilles Sensation LE WNL to gross light touch. Balance/Special Test Scores Lower Extremity Functional Score: 42 Goals Goal 1:: 2 degrees DF R ankle to improve walking Goal Time Frame: 4-6 Weeks Goal 2:: I appropriate HEP for proprioception , ROM and strength Goal Time Frame: 4-6 Weeks Goal 3:: wean out of boot and walk community without deviations Goal Time Frame: 4-6 Weeks Goal 4:: Pt feel ready to return to work and 90% back to normal mobility Goal Time Frame: 4-6 Weeks Goal 5:: LEFS score 55 Goal Time Frame: 4-6 Weeks Rehabilitation Potential Physical Therapy Diagnosis: limited ROM and flexibility and soreness effecting function Rehabilitation Potential: Good Anticipated Interventions Patient/Client Instruction: Educate patient on: Condition and Plan of Care For the Purpose of:: To decrease pain, To increase ROM, To improve nutrient delivery to tissue, To improve muscle performance and motor function, To increase tolerance to activity/condition/position, To improve ability of physical actions for home/community/work/leisure and To improve gait and locomotor functions Therapeutic Exercise to Include: Strength training, Flexibilty training, Gait and locomotor training, Passive ROM and Active ROM For the Purpose of:: To decrease pain, To increase ROM, To improve nutrient delivery to tissue, To improve muscle performance and motor function and To increase tolerance to activity/condition/position Text: Thank you for the opportunity to evaluate your patient. For Medicare and Medicare HMO plans, please review the plan of care and approve it. It will need to be FAXED BACK to us at [phone] for Medicare purposes. For Medicare only, by signing this I certify the plan of care. Please let me know if there are questions or concerns regarding this plan of care. Physician Signature: Date:
--- NOTE | 2023-08-20 13:25 | HP.PT.NRP ---
Patient Information Patient Information: GRACIELA Chen FATZINGER was seen in my office for initial evaluation on 05/30/23. The following Plan of Care was established for this patient: POC Established Initial Frequency: 1-2x /Week Initial Duration: 4-6 Weeks Anticipated Interventions Patient/Client Instruction: Educate patient on: Condition and Plan of Care For the Purpose of:: To decrease pain, To increase ROM, To improve nutrient delivery to tissue, To improve muscle performance and motor function, To increase tolerance to activity/condition/position, To improve ability of physical actions for home/community/work/leisure and To improve gait and locomotor functions Therapeutic Exercise to Include: Strength training, Flexibilty training, Gait and locomotor training, Passive ROM and Active ROM For the Purpose of:: To decrease pain, To increase ROM, To improve nutrient delivery to tissue, To improve muscle performance and motor function and To increase tolerance to activity/condition/position Last Seen Last Seen: This patient was last seen in our office 06/16/23. Pertinent comments regarding their Physical therapy will appear below: Pt seen for two visits of POC and was progressing nicely. He did not attend any further visits. At this point, it has been over two months and I will discontinue due to nonattendance. At this point I will be discontinuing this patient from physical therapy. I would be happy to see this patient again in the future if found appropriate by the physician. Thank you! Juvencio Montgomery, DPT, OCS, CSCS Balance/Gait/Functional tests Balance/Special Test Scores Lower Extremity Functional Score: 42
== END 2023-06-16 19:00 | disposition home or self-care (01) ==
LOC: PT 08:30
PROVIDERS: PCP Family Medicine; Referring Provider Podiatrist; Visit Provider Podiatrist
DX: Z98.890 Other specified postprocedural states (principal)
CPT/HCPCS: 97110; 97161

== ENCOUNTER → 2023-09-18 | Outpatient (CLI) | payer OTHER, SELFPAY ==
[2023-09-18 09:49] LABS: Absolute Lymphocyte Count 1.56 X10^3/uL (0.83-4.51); Absolute Neutrophil Count 2.6 X10^3/uL (2.0-7.7); Basophil# 0.03 X10^3/uL; Basophil% 0.6 % (0-1); Eosinophil# 0.24 X10^3/uL; Eosinophils% 4.9 % (0-5); Hematocrit 42.5 % (40-54); Hemoglobin 14.6 g/dL (13.0-16.5); Lymphocyte # 1.56 X10^3/ul (0.83-4.51); Lymphocyte % 31.8 % (19-41); Mean Corp Hgb Conc 34.4 g/dL (32-36); Mean Corpuscular Hgb 36.3 pg (27.0-32.0); Mean Corpuscular Volume 105.7 fL (80-94); Monocyte# 0.47 X10^3/uL; Monocyte% 9.6 % (0-10); NRBC Flagged by Analyzer 0 % (0-5); Neutrophil % 52.9 % (47-70); Platelet Count 194 K/mm3 (150-450); RBC Distribution Width CV 14.7 % (11.6-14.6); RBC Distribution Width SD 57.5 fl (35.1-43.9); Red Blood Count 4.02 M/mm3 (4.6-6.2); White Blood Count 4.9 K/mm3 (4.4-11.0)
[2023-09-18 11:25] LABS: ALB/GLOB Ratio 1.1 RATIO (0.9-2.4); AST(SGOT) 70 U/L (15-37); Alanine Aminotransfer ALT/SGPT 82 U/L (16-61); Albumin, Serum 3.8 g/dL (3.2-5.0); Alkaline Phosphatase 59 U/L (45-117); Anion Gap 9 (5-15); BUN 13 mg/dL (7-18); Chloride 108 mmol/L (98-107); Creatinine, Serum 0.87 mg/dL (0.70-1.30); EST Glomerular Filtration Rate 99 mL/min (>60); Est Glom Filt Rate - Afr Amer 120 mL/min (>60); Globulin 3.4 g/dL (2.2-4.2); Glucose 107 mg/dL (74-106); Potassium 4.1 mmol/L (3.5-5.1); Protein, Total 7.2 g/dL (6.4-8.2); Sodium Level 142 mmol/L (136-145); T4 Free Direct 1.23 ng/dL (0.76-1.46); Thyroid Stim Hormone (TSH) 3.67 uIU/mL (0.358-3.74)
== END | disposition home or self-care (01) ==
LOC: MTLAB 09:19
PROVIDERS: PCP Family Medicine; Referring Provider Family Medicine; Visit Provider Family Medicine
DX: E03.9 Hypothyroidism, unspecified (principal); I10 Essential (primary) hypertension
CPT/HCPCS: 36415; 80053; 84439; 84443; 85025

== ENCOUNTER → 2023-10-01 | Outpatient (CLI) | payer OTHER, SELFPAY ==
[2023-10-01 13:44] LABS: Thyroid Stim Hormone (TSH) 5.27 uIU/mL (0.358-3.74)
[2023-10-02 15:16] LABS: Vitamin B12 97 pg/mL (211-911)
== END | disposition home or self-care (01) ==
PROVIDERS: PCP Family Medicine; Referring Provider Family Medicine; Visit Provider Family Medicine
DX: D75.89 Other specified diseases of blood and blood-forming organs (principal)
CPT/HCPCS: 36415; 82607; 82746; 84443

== ENCOUNTER 2024-03-22 07:29 | Day surgery (SDC) | payer OTHER, SELFPAY ==
[2024-03-22] VITALS (8 sets, daily range): BP systolic 115–157; BP diastolic 68–93; PULSE 78–91; RESP 16–18; TEMP 36.5–36.6; O2SAT 94–98; BMI 35.5
--- NOTE | 2024-03-22 07:50 | PRE.ANES_ITS ---
ASA Classification* ASA Classification ASA Classification: 2 Assessment & Plan Anesthesia* Anesthesia Assessment Anesthesia Assessment: Discussed sedation and/or anesthesia options, risks, benefits, and alternatives with patient/parents/legal guardian/POA. Questions invited. The patient/parents/legal guardian/POA seems to understand and agrees to proceed with anesthesia plan. Reviewed the physical assessment, medical history, allergy history and patient home medications list prior to surgery/procedure/anesthetic and documented any changes. Performed airway and anesthesia risk assessments. Anesthesia Type Anesthesia Type: MAC Anesthesia Focused Assessment* Airway Assessment Mouth opens: >3 cm Mallampati Score: II Focused Labs Anesthesia Preop lab: CBC WBC 4.9 K/mm3 (4.4-11.0) 09/18/23 09:20 RBC 4.02 M/mm3 (4.6-6.2) L 09/18/23 09:20 Hgb 14.6 g/dL (13.0-16.5) 09/18/23 09:20 Hct 42.5 % (40-54) 09/18/23 09:20 Plt Count 194 K/mm3 (150-450) 09/18/23 09:20 CHEMISTRY Potassium 4.1 mmol/L (3.5-5.1) 09/18/23 09:20 Sodium 142 mmol/L (136-145) 09/18/23 09:20 BUN 13 mg/dL (7-18) 09/18/23 09:20 Creatinine 0.87 mg/dL (0.70-1.30) 09/18/23 09:20 Glucose 107 mg/dL (74-106) H 09/18/23 09:20 TSH 5.27 uIU/mL (0.358-3.74) H 10/01/23 08:47 COAG Pre-Assessment Diagnosis/Proposed Procedure Planned Operative Procedure(s): (R) Excision, Lipoma on R shoulder & R behind the ear Anesthesia History Anesthesia History - cadd technician: Anesthesia History - cadd technician Hx Hospitalization No 03/11/24 08:19 Any Problems With Anesthesia No 03/11/24 08:19 Cholinesterase deficiency No 03/11/24 08:19 You/Your Family Experience No 03/11/24 08:19 fever (hyperthermia) with Relationship Recent Exposure to Contagious No 03/28/23 06:32 Disease Does patient have nerve No 03/11/24 08:19 stimulator Patient instructed to have device shut off --Does patient have Pacemaker or ICD? When Was Last Pacemaker Check QUESTION #4 FULL TEXT: You/Your Family Experience fever (hyperthermia) with Anesthesia Last Oral Intake Last Oral intake: Last Oral Intake NPO since Meds taken in AM with sips of water? Meds patient instructed to take am of surgery PONV PONV - cadd technician: PONV - cadd technician Female No 03/11/24 08:19 HX of Motion Sickness No 03/11/24 08:19 HX of N/V After Surgery No 03/11/24 08:19 Non-Smoker Yes 03/11/24 08:19 Duration of Surgery greater No 03/11/24 08:19 than 60 minutes Number of Risk Factors 1 03/11/24 08:19 PONV Score Low Risk 03/11/24 08:19 Height & Weight Height & Weight: Anesthesia: Height & Weight Height 6 ft 3 in 03/19/24 08:29 Weight: 129.274 kg 03/19/24 08:29 Respiratory Assessment Respiratory Assessment - cadd technician: Respiratory Tract Infection Hx - cadd technician Hx Respiratory Tract Infection No 03/11/24 08:19 STOP Sleep Apnea STOP Sleep Apnea - cadd technician: STOP Sleep Apnea - cadd technician Hx Hypertension Yes 03/11/24 08:19 Hx Sleep Apnea No 03/11/24 08:19 CPAP No 03/28/23 10:50 BIPAP Do you snore loudly (louder No 03/11/24 08:19 than talking or can be heard Do you often feel tired/ No 03/11/24 08:19 fatigued/ sleepy during daytime? Has anyone observed you stop No 03/11/24 08:19 breathing during sleep? STOP Results Negative 03/11/24 08:19 QUESTION #5 FULL TEXT : Do you snore loudly (louder than talking or can be heard through closed doors)? Tobacco Use History Tobacco Use History - cadd technician: Tobacco Use History - cadd technician Tobacco Use Non-smoker 08/24/14 13:44 Smoking Status Former smoker 03/11/24 08:19 Hx Tobacco Use No 03/11/24 08:19 Years Smoking Packs Smoked per Day Smoking Cessation Date was No - quit smoking greater 03/11/24 08:19 within the last 15 years than 15 years ago Hx Smoking Cessation Date Hx Smoking Cessation No 03/11/24 08:19 Counseling Hematologic Medial History Hematologic Hx - cadd technician: Hematologic Medical Hx - hopper attendant Hx of Blood Transfusion No 03/11/24 08:19 Hx of Transfusion in last 3 No 03/11/24 08:19 Months Date of Last Transfusion (if within last 3 months) Ever experience any problems No 03/11/24 08:19 with transfusion(s)? Specify any problems Hx of Preganancy in last 3 N/A 03/11/24 08:19 Months Nurse Filling Out Transfusion VLEHMAN 03/11/24 08:19 & Questions: Date: 03/11/24 03/11/24 08:19 Time: :03/11/24 08:19 Patient unable to answer at this time (ie. confused, unrespo /Reproduction History /Reproductive History - cadd technician: /Reproductive Hx- cadd technician Hx Now Gestational Age (in weeks): EDC: Hx Hx Para Hx Section SAB No 03/18/23 14:05 Active Medications Active Medications: Current Medications Generic Name Dose Route Start Last Admin Trade Name Freq PRN Reason Stop Dose Admin Cefazolin Sodium 2 gm/ N/A 20 mls @ 400 mls/hr 03/22/24 09:00 IV 03/22/24 09:02 [facility]OP [facility] Medical History Alcohol use Arthritis History of renal disease Loss of hearing Wears glasses Thyroid disease Former smoker History of echocardiogram History of stress test Cardiology follow-up encounter History of irregular heartbeat Hypertension Hx of lipoma Home Medications ?Medication ?Instructions ?Recorded ?Last Taken ?Type levothyroxine 75 mcg tablet 150 mcg PO DAILY 08/07/14 03/28/23 History metoprolol succinate 25 mg 25 mg PO 1500 08/22/14 03/27/23 History tablet,extended release 24 hr losartan 25 mg tablet 25 mg PO 1500 03/18/23 03/27/23 History Allergy/AdvReac Type Severity Reaction Status Date / Time No Known Allergies Allergy Verified 03/11/24 08:16 Family History Father Heart disease Hypertension CAD (coronary artery disease) Mother Hypertension Surgical History S/P vasectomy History of toe surgery Hx of anterior cruciate ligament surgery History of lateral meniscus repair of right knee Hx of hand surgery History of laparoscopic cholecystectomy Social History Smoking Status: Former smoker alcohol intake: current Review of Systems (Anesthesia) ROS Narrative System reviewed and no additional complaints, except as documented.
--- NOTE | 2024-03-22 08:22 | HP.PCM_ITS ---
History and Physical Intake Vital Signs 03/28/2306:32 02/19/2408:31 Height 6 ft 3 in 6 ft 3 in Weight: 285 lb BMI 35.6 BP 164/84 H Blood Pressure Location Rt brachial Position Sitting Respiration 16 Intake Visit Reasons: LIPOMAS ON SHOULDER AND BEHIND EAR Chief Complaint: lipomas Pile Driving Technician Required: No Is patient in pain?: No Allergies No Known Allergies Allergy (Verified 02/19/24 08:31) Medications ?Medication ?Instructions ?Recorded ?Confirmed ?Type levothyroxine 75 mcg tablet 150 mcg PO DAILY 08/07/14 02/19/24 History metoprolol succinate 25 mg 25 mg PO 1500 08/22/14 02/19/24 History tablet,extended release 24 hr losartan 25 mg tablet 25 mg PO 1500 03/18/23 02/19/24 History tadalafil 10 mg tablet (Cialis) 10 mg PO QDAY PRN 02/19/24 02/19/24 History Have you fallen in the past year?: No PFSH Medical History Loss of hearing Wears glasses Thyroid disease Former smoker History of echocardiogram History of stress test Cardiology follow-up encounter History of irregular heartbeat Hypertension Hx of lipoma Surgical History S/P vasectomy History of toe surgery Hx of anterior cruciate ligament surgery History of lateral meniscus repair of right knee Hx of hand surgery History of laparoscopic cholecystectomy Family History Father Heart disease Hypertension CAD (coronary artery disease)Mother Hypertension Social History Smoking Status: Former smoker alcohol intake: current HPI HPI HPI: Patient is a 48-year-old male here for multiple lipomas. He has a lipoma behind his right ear as behind his right shoulder blade. The one behind his shoulder blade is very a large as has been growing for several years. The one behind his ear has been growing larger as well. ROS General General: No weight change, appetite, fatigue, colon cancer, breast cancer or weakness HEENT HEENT: No difficulty swallowing, eye injury, eye surgery, swollen glands or hoarseness Endo Endocrine: Yes thyroid disease; No diabetes mellitus, thyroid cancer, Hair loss, heat intolerance or cold intolerance Skin Skin: No rash or changing moles Breast Breast: No left breast lump, right breast lump, nipple discharge, breast pain, abnormal mammogram, abnormal US or breast enlargement Musc Musculoskeletal: Yes arthritis; No back problems, rheumatoid arthritis, gout or joint pain Cardio Cardiovascular: Yes high blood pressure; No murmur, pacemaker, heart disease, atrial fibrillation, heart attack, heart stent, palpitations, shortness of breat with exertion or chest pain Psych Psychiatric: No depression, anxiety or hearing voices Resp Respiratory: No shortness of breath, No sleep apnea, No cough, No COPD, No asthma, No emphysema and No wheezing Gastro Gastrointestinal: No abdominal pain, No nausea or vomiting, No diarrhea, No constipation, No blood in stool, No acid reflux, No hemorrhoids, No ulcers, No gallbladder problem and No black,tarry stools Ced Hematologic: No blood thinners, No blood disorders, No bleeding, No anemia and No blood clots Neuro Neurologic: No system reviewed and no additional complaints, except as documented, No as per HPI, No abnormal gait, No abnormal hearing, No abnormal movements, No abnormal speech, No behavioral changes, No burning sensations, No confusion, No convulsions, No disequilibrium, No dizziness, No localized weakness, No frequent falls, No headache(s), No lack of coordination, No loss of vision, No memory loss, No numbness, No other visual disturbances, No radicular pain, No restless legs, No sensory deficit, No syncope, No tingling, No tremor(s), No weakness and No other Exam Const General: cooperative Orientation: alert and oriented x3 [facility] Head: normal to inspection Neck Neck: normal visual inspection and full ROM Chest Chest palpation & inspection: normal inspection of the chest Resp Effort & Inspection: normal respiratory effort Auscultation: clear to auscultation bilaterally Cardio Rate: regular rate Rhythm: regular rhythm GI Inspection: non-distended Palpation: soft and nontender Skin General: no rashes or lesions noted Neuro General: patient alert and patient oriented x3 Extrem General: full ROM Psych Appearance: grossly normal Mental Status: mental status grossly normal Assessment and Plan Assessment and Plan (1) Multiple lipomas: Status: Acute Plan: Patient has a lipoma on his right shoulder blade which is very large. It measures approximately 10 cm. I would like to remove this in the operating room where I have cautery and anesthesia available. I will also remove the 1 behind his ear. He did mention he had 1 above his right eye and below his left jawline but these are too small to remove and I would send him to plastics for those. After discussing the procedure in detail as well as the risks of bleeding and infection and injury to other organs patient agrees to proceed. Abdullahi Wilder MD Pager: [facility] [address] [place] [address] [address] [place] [address] Office: I have examined the patient and the H&P has been reviewed. There are no clinical changes since date of exam.
[2024-03-22] MEDS: Cefazolin 2 GM in Syringe IV (08:51)
--- NOTE | 2024-03-22 09:00 | LIP_PTH ---
PATIENT: GRACIELA JAIN LOC: [facility] U#:[id number] AGE/SX: 49/M ROOM: RE03/22/[address]: Dr. Abdullahi Wilder MD : 1975 BED: DIS: 03/22/2024 SPEC #: [id number] RECD: 03/22/24 12:43 STATUS: SHIVAM RENicole #: [id number] SHORTY: 03/22/24 09:[address]: Abdullahi Wilder DEPT: SURGICAL PATHOLOGY RECD BY: Myla Meza ENTERED: 03/22/24 14:19 SP TYPE: LIPOMA OTHR DR: Dr. Lexy Elizondo MD Tissues: A - Skin of upper extremity and shoulder B - Skin of neck, NOS Procedures: Surgery Specimen Level IV HEADER OPERATION: Excision, lipoma on right shoulder and right behind the ear PRE-OP DIAGNOSIS: Multiple lipomas TISSUE SUBMITTED: A. Right shoulder mass, B. Right neck mass MICROSCOPIC DIAGNOSIS A. Right shoulder mass, excision: Mature adipose tissue consistent with lipoma with focal areas of fibrolipoma. B. Right neck mass, excision: Mature adipose tissue consistent with lipoma. 03/23/2024 MICROSCOPIC DESCRIPTION Slides are reviewed. GROSS DESCRIPTION A. Received in fixative is one container labeled with the patient name and designated right shoulder lipoma. The specimen consists of multiple irregular pieces of adipose tissue measuring 11 x 10 x 3 cm. Sections reveal yellow adipose cut surfaces without areas of hemorrhage, necrosis or cystic degeneration. Licensed Insurance Agent sections are submitted in four cassettes. B.Received in fixative is one container labeled with the patient name and designated right neck lipoma. The specimen consists of multiple irregular pieces of adipose tissue measuring 5 x 3 x 0.3 cm. Sections reveal yellow adipose cut surfaces without areas of hemorrhage, necrosis or cystic degeneration. Entire specimen is submitted in two cassettes. /VISHAL:cc 03/22/24 TC:1 CPT: 11037 x2
[2024-03-22] MEDS: Lidocaine 1% /Epi 1:100 (20ml) 20 ML Vial (09:39)
--- NOTE | 2024-03-22 09:57 | PCM.POST.ANE ---
Anesthesia: Postop Eval I Current Vital Signs Temperature: 97.7 F Pulse Rate: 91 Blood Pressure: 124/70 Respiratory Rate: 18 Pulse Ox: 98 Assessment Airway patent: Yes Spontaneous unlabored respirations: Yes nausea: No Vomiting: No Anesthesia Complication: No Fluid Hydration Crystalloid volume administer (ml): 500 Total IV fluid infused: 500 Progress Note Anesthesia document: Postop Eval 1 completed: Yes
--- NOTE | 2024-03-22 09:58 | OP.PCM_ITS ---
Operative Report (Standard) Operative Information Date of Procedure: 03/22/24 Pre-Operative Diagnosis: 1. Right shoulder lipoma 2. Right neck lipoma Post-Operative Diagnosis: Same Surgery/Procedure Performed: Excision of right shoulder lipoma and right neck lipoma hydroelectric plant electrical engineer: Yes Laundry Worker: Solomon Menendez Tasks completed by dietetic assistant: Retracting Type of Anesthesia: General/Regional RN Documented Start/Stop Times: Operation Date: 03/22/24 09:00 Case Time Into Pre-Op 03/22/24 07:43 Out of Pre-Op 03/22/24 08:47 Anesthesia Start 03/22/24 08:51 Into Room 03/22/24 08:51 Procedure Start 03/22/24 09:15 Procedure End 03/22/24 09:46 Anesthesia End 03/22/24 09:54 Out of Room 03/22/24 09:54 Procedure Start Time: 09:15 Procedure Stop Time: 09:46 Select all DRAINS/GRAFTS/IMPLANTS that apply: None Estimated Blood Loss: 10 Specimen collected: Yes Description of specimen(s) removed: 1. Right shoulder mass 2. right neck mass Description of surgery: Patient was brought to the operating room and general anesthesia was induced. The patient was placed in prone position. The right shoulder was then prepped a nd draped. An incision was marked and injected with local anesthetic. Incision was made with a scalpel and deepened to the lipoma. It was removed is much as possible in 1 piece. It measured approximately 10 to 11 cm. There were a few small pieces that came out afterwards. The cavity was swept and there was no further lipoma identified. The skin was closed with interrupted 3-0 Vicryl sutures and a running 4-0 Monocryl suture. Steri-Strips and a bandage were applied. Next the right neck was prepped and draped in usual sterile fashion. An incision was marked and injected with local anesthetic. Incision was made and deepened to lipoma. The lipoma was very adherent and scarred in and did not easily come out. It was sharply dissected free and sent for pathology. The cavity was irrigated and suctioned dry and closed with interrupted 3-0 Vicryl sutures. Dermabond was applied. Surgical Findings: Large lipoma of the right shoulder and small lipoma of the right neck Complications Complications: No Admit VTE Documentation VTE Mechan Device Prophylaxis: SCD's
--- NOTE | 2024-03-22 10:01 | DCINST_ITS ---
Discharge Instructions Diet Discharge Diet: Light diet - advance as tolerated Activity Discharge Activity: May Shower (tomorrow) Additional Activity Instructions:: Alternate Ibuprofen and Tylenol for pain, oxycodone for breakthrough pain Dressing / Incision Call your doctor if your incision/area has: Continuous Slow Oozing, Sudden Increased Bleeding, Increased Pain/ Swelling, Increased Redness, Foul Smelling Discharge and Swelling at the incision site Call your doctor if you observe: Fever of 101 or Higher Change Dressing in: 2 days Cleanse incision/area with: Soap & Water Follow Up Care Please Follow Up With: Abdullahi Wilder MD When: Please call to schedule 2 week follow up appointment. [phone] Test Results: Test results from this visit will be discussed in further detail at your follow- up appointment, if applicable. Discharge Plan Admission Attending Provider: Abdullahi iWlder Primary Care Provider: Lexy Elizondo Instructions Print Language: Citizen Of [place] Discharge Orders/Prescriptions Prescriptions: New oxycodone 5 mg tablet 5 - 10 mg PO Q6H PRN (Reason: pain) 5 Days Qty: 10 0RF No Action levothyroxine 75 MCG tablet 150 mcg PO DAILY Patient Comments: thyroid metoprolol succinate 25 MG tablet 25 mg PO 1500 Patient Comments: high blood pressure/heart losartan 25 mg tablet 25 mg PO 1500 Referrals / Follow Up: Lexy Elizondo MD [Primary Care Provider] - Disposition Disposition (needs filled in before D/C Order can be placed): Home, Self Care
--- NOTE | 2024-03-22 15:09 | POSTOPAN2_ITS ---
Anesthesia Postop Eval I Sum Postop Eval Completion status Anesthesia document: Postop Eval 1 completed: Yes Anesthesia Postop Eval I Summary Anesthesia Postop Eval I Summary: Anesthesia Postop Eval I: Assessment Summary Airway patent Yes 03/22/24 09:58 PHARMACIST'S AIDE.CSIR Spontaneous unlabored Yes 03/22/24 09:58 PHARMACIST'S AIDE.CSIR respirations Mental status nausea No 03/22/24 09:58 PHARMACIST'S AIDE.CSIR Vomiting No 03/22/24 09:58 PHARMACIST'S AIDE.CSIR Anesthesia Postop Eval I: Fluid Summary Crystalloid volume administer 500 03/22/24 09:58 PHARMACIST'S AIDE.CSIR (ml) Colloids volume administered ( ml) Blood Product volume administered (ml) Total IV fluid infused 500 03/22/24 09:58 PHARMACIST'S AIDE.CSIR Anesthesia Postop Eval I: Summary Notes Anesthesia Complication No 03/22/24 09:58 PHARMACIST'S AIDE.CSIR Anesthesia Complication Comment: Post-operative progress note Anesthesia: Postop Eval II Evaluation Mental status: Awake and Calm Pain Level: 1 nausea: No Vomiting: No Complications Anesthesia Complication: No
--- NOTE | 2024-03-22 15:09 | PCM.POSTANE2 ---
Anesthesia Postop Eval I Sum Postop Eval Completion status Anesthesia document: Postop Eval 1 completed: Yes Anesthesia Postop Eval I Summary Anesthesia Postop Eval I Summary: Anesthesia Postop Eval I: Assessment Summary Airway patent Yes 03/22/24 09:58 DEVELOPMENT MECHANIC.CSIR Spontaneous unlabored Yes 03/22/24 09:58 DEVELOPMENT MECHANIC.CSIR respirations Mental status nausea No 03/22/24 09:58 DEVELOPMENT MECHANIC.CSIR Vomiting No 03/22/24 09:58 DEVELOPMENT MECHANIC.CSIR Anesthesia Postop Eval I: Fluid Summary Crystalloid volume administer 500 03/22/24 09:58 DEVELOPMENT MECHANIC.CSIR (ml) Colloids volume administered ( ml) Blood Product volume administered (ml) Total IV fluid infused 500 03/22/24 09:58 DEVELOPMENT MECHANIC.CSIR Anesthesia Postop Eval I: Summary Notes Anesthesia Complication No 03/22/24 09:58 DEVELOPMENT MECHANIC.CSIR Anesthesia Complication Comment: Post-operative progress note Anesthesia: Postop Eval II Evaluation Mental status: Awake and Calm Pain Level: 1 nausea: No Vomiting: No Complications Anesthesia Complication: No
== END 2024-03-22 11:19 | disposition home or self-care (01) ==
LOC: SDC 07:33 → AC 07:34
PROVIDERS: PCP Family Medicine; Referring Provider Surgery; Visit Provider Surgery
PROC: (CPT 21555; principal; 2024-03-22 08:45)
DX: D17.21 Benign lipomatous neoplasm of skin and subcutaneous tissue of right arm (principal); R22.1 Localized swelling, mass and lump, neck; I10 Essential (primary) hypertension; Z87.891 Personal history of nicotine dependence; R22.31 Localized swelling, mass and lump, right upper limb; Z90.49 Acquired absence of other specified parts of digestive tract; D17.39 Benign lipomatous neoplasm of skin and subcutaneous tissue of other sites
CPT/HCPCS: 21555; 23071; 00300; 88305; A4216; J2405

== ENCOUNTER → 2024-11-02 | Outpatient (CLI) | payer OTHER, SELFPAY ==
[2024-11-02 18:27] LABS: Hematocrit 43.7 % (40-54); Hemoglobin 15.0 g/dL (13.0-16.5); Immature Granulocytes Count 0.010 X10^3/uL (0.0-0.0); Mean Corp Hgb Conc 34.3 g/dL (32-36); Mean Corpuscular Volume 89.9 fL (80-94); Mean Platelet Vol. 11.0 fl (6.2-12.0); NRBC Flagged by Analyzer 0 % (0-5); Platelet Count 227 K/mm3 (150-450); RBC Distribution Width CV 13.9 % (11.6-14.6); RBC Distribution Width SD 45.8 fl (35.1-43.9); Red Blood Count 4.86 M/mm3 (4.6-6.2); White Blood Count 6.9 K/mm3 (4.4-11.0)
[2024-11-02 19:13] LABS: Vitamin B12 513 pg/mL (180-914)
--- OUTSIDE RECORDS SUMMARY | 2024-11-02 19:38 | XMS RPT_ITS | CCD ---
Author Organization [facility] Care Team Providers Care Supervisor Dog License Officer Name Role Phone Joshua STEELE, Anup Crawford Primary Care Provider Miedel, Lexy Referring Unavailable Miedel, Lexy Primary Care Unavailable Miedel, Lexy Attending Unavailable Miedel, Lexy Referring Unavailable Miedel, Lexy Primary Care Unavailable Miedel, Lexy Attending Unavailable Miedel, Lexy Primary Care Unavailable Abdullahi Wilder Attending Unavailable Miedel, Lexy Referring Unavailable Abdullahi Wilder Attending Unavailable Abdullahi Wilder Referring Unavailable Miedel, Lexy Primary Care Unavailable Abdullahi Wilder Consulting Unavailable Abdullahi Wilder Attending Unavailable Abdullahi Wilder Referring Unavailable Miedel, Lexy Primary Care Unavailable Miedel, Lexy Referring Unavailable Abdullahi Wilder Attending Unavailable Miedel, Lexy Primary Care Unavailable Moshe Cantor Attending Unavailable Moshe Cantor Referring Unavailable Miedel, Lexy Primary Care Unavailable Miedel, Lexy Primary Care Unavailable Moshe Cantor Attending Unavailable Moshe Cantor Referring Unavailable Medications Current Medications Medication Drug Class(es) Dates Sig (Normalized) Sig (Original) acetaminophen 325 mg / oxyCODONE hydrochloride 5 mg oral tablet (8 sources) Opioid Agonist Start: 03-28-2023 take 1 tablet by mouth every six hours Oxycodone-Acetami nophen (Percocet) 5-325 mg tablet Active 1 - 2 TABLET PO EVERY 6 HOURS 22 07March 28, 2023 Start: 08-25-2014 take 1 tablet by ebony th every four hours as needed Oxycodone-Acetaminophen Active 1 TABLET PO EVERY 4 HOURS NEEDED August 24, 2014 11:00pm lisinopril 5 mg oral tablet (11 sources) Angiotensin Converting Enzyme Inhibitor Start: 08-07-2014 take 5 mg by mouth once daily Lisinopril Active 5 MG PO DAILY August 06, 2014 11:00pm take 5 mg by mouth once daily li sinopril 10 mg ORAL tablet Take 5 mg by mouth once daily. 0 Active Comment on above: Take 5 mg by mouth o nce daily. TAKE 1 TABLET BY EBONY TH ONCE DAILY losartan potassium 25 mg oral tablet (2 sources) Angiotensin 2 Receptor Abram Start: 03-18-2023 Losartan Active 25 MG PO 1500 March 18, 2023 12:00am 24 hr metoprolol succinate 25 mg extended release oral tablet (13 sources) beta-Adrenergic Abram Start: 08-22-2014 End: 08-05-2022 Metoprolol Succinate Active 25 MG PO 1500 August 21, 2014 11:00pm Comment on above: Take 25 mg by mouth once daily. TAKE 1 TABLET BY EBONY ONCE DAILY Completed/Discontinued Medications Medication Drug Class(es) Dates Sig (Normalized) Sig (Original) codeine phosphate 2 mg/ml / guaiFENesin 20 mg/ml oral solution (8 sources) Opioid Agonist Start: 06-02-2015 take 5-10 mL by mouth four times daily as needed for cough codeine-guaiFENesin (ROBITUSSIN AC) 10-100 mg/5 mL syrup Indications: Viral URI with cough Take 5-10 mL by mouth four times daily as needed for Cough. May cause drowsiness. 120 mL 0 04/07/2016 Active Comment on above: Take 5-10 mL by mout four times daily as needed for Cough. May cause drowsiness. 12 hr guaiFENesin 600 mg extended release oral tablet (4 sources) Start: 04-07-2016 take 2 tablets by mouth twice daily guaiFENesin (MUCINEX) 600 mg 12 hr tablet Indications: Viral URI with cough Take 2 tablets by mouth twice daily. 30 tablet 0 04/07/2016 Active Comment on above: Take 2 tablets by mo [facility] twice daily. levothyroxine sodium 0.137 mg oral tablet (12 sources) l-Thyroxine Start: 01-23-2022 take 1 tablet by mouth in the morning levothyroxine (SYNTHROID) 137 mcg tablet Indications: Acquired hypothyroidism TAKE 1 TABLET BY MOUTH IN THE MORNING 90 tablet 1 01/23/2022 Active Start: 08-07-2014 take 150 ug by mouth once daily Levothyroxine Active 150 MCG PO DAILY August 06, 2014 11:00pm Start: 08-07-2014 take 75 ug by mouth once daily Levothyroxine Active 75 MCG PO DAILY August 06, 2014 11:00pm LEVOTHYROXINE SO DIUM (SYNTHROID ORAL) Take by mouth. 0 Active Comment on above: Take by mouth. TAKE 1 TABLET BY EBONY TH IN THE MORNING omeprazole 20 mg delayed release oral tablet (4 sources) Proton Pump Inhibitor Start: 08-17-19 15 take 1 tablet by mouth once daily Omeprazole 20 mg TbEC Take 20 mg by mouth once daily. 30 tablet 2 08/16/2014 Active Comment on above: Take 20 mg by mouth once daily. tadalafil 10 mg oral tablet (4 sources) Phosphodiesterase 5 Inhibitor Start: 12-05-19 Tadalafil (CIALIS) 10 mg tablet Problems Active Problems Problem Classification Problem Date Documented Da te Episodic/Chronic Essential hypertension (12 sources) Essential hypertension; Translations: [Essential (primary) hypertension] Onset: 08-19-2014 08-19-2014 Chronic Other and unspecified benign neoplasm (1 source) Benign lipomatous neoplasm of skin and subcutaneous tissue of right arm; Translations: [Benign lipomatous neoplasm of skin and subcutaneous tissue of right arm] Onset: 04-20-2024 Episodic Other connective tissue disease (2 sources) Foot pain; Translations: [Pain in right foot] 03-28-2023 Episodic Other endocrine disorders (4 sources) Testicular hypofunction; Translations: [Testicular hypofunction] Onset: 03-05-2005 03-05-2005 Chronic Other hematologic conditions (1 source) Other specified diseases of blood and blood-forming organs; Translations: [Other specified diseases of blood and blood-forming organs] Onset: 10-16-2023 Chronic Other upper respiratory disease (4 sources) Allergic rhinitis; Translations: [Allergic rhinitis, unspecified] 12-19-2004 Chronic Substance-related disorders (4 sources) Tobacco user; Translations: [Nicotine dependence, unspecified, uncomplicated] 12-19-2004 Chronic Thyroid disorders (14 sources) Hypothyroidism; Translations: [Hypothyroidism, unspecified] Onset: 08-19-2014 [...] [Encounter for sterilization] Onset: 11-14-2008 11-14-2008 Episodic Skin and subcutaneous tissue infections (1 source) Cellulitis, unspecified; Translations: [Cellulitis, unspecified] Onset: 05-13-2023 Episodic Unclassified (8 sources) Medical management 12-03-2021 Results Test Name Value Interpretation Reference Range Facility Surgery Visit Reporton 04-05 Surgery Visit Report [facility] [address] [place] [address] OFFICE VISIT Date of Service: 04/05/24 MR#: [id number] Acct: [id number] Name: GRACIELA JAIN Rep #: [id number] : 1975 Provider: Dr. Abdullahi delatorre MD Age/Sex: 49/M Location: [facility] Status: Signed Intake Vital Signs 03/22/24 07:57 Height 6 ft 3 in Intake Visit Reasons: EXCISION OF LIPOMA X2 DOS 03/22 Chief Complaint: excision of lipoma x2 dos 03/22 Is patient in pain?: No Allergies No Known Allergies Allergy (Verified 04/05/24 14:54) Medications ???Medication ???Instructions ???Recorded ???Confirmed ???Type levothyroxine 75 mcg tablet 150 mcg PO DAILY 08/07/14 04/05/24 History metoprolol succinate 25 mg 25 mg PO 1500 08/22/14 04/05/24 History tablet,extended release 24 hr losartan 25 mg tablet 25 mg PO 1500 03/18/23 04/05/24 History Subjective Details: Patient is doing well after lipoma removal Objective Details: Incisions are clean dry and intact Coding Level of Care Code Global Post Op Diagnoses S/P excision of lipoma Z98.890; Z86.018 [facility] Medical History Alcohol use Arthritis History of renal disease Loss of hearing Wears glasses Thyroid disease Former smoker History of echocardiogram History of stress test Cardiology follow-up encounter History of irregular heartbeat Hypertension Hx of lipoma Surgical History (Updated 04/05/24 @ 14:55 by Paris Santos) S/P excision of lipoma S/P vasectomy History of toe surgery Hx of anterior cruciate ligament surgery History of lateral meniscus repair of right knee Hx of hand surgery History of laparoscopic cholecystectomy Family History Father Heart disease Hypertension CAD (coronary artery disease) Mother Hypertension Social History Smoking Status: Former smoker alcohol intake: current Assessment and Plan (No Qualifiers) Assessment and Plan (1) S/P excision of lipoma: Status: Acute Plan: The patient's incisions are healing well. There appears to be residual lipoma on the shoulder site superior to the excision site. This may be a second lipoma that may need to be removed in the future. I would and that he is doing well with no issues. Follow-up as needed. Abdullahi Wilder MD Pager: [facility] [address] [place] [phone] Office: 04/07/24 0748 Date Abdullahi Wilder MD [facility] Signature: Date (if applicable) CC: Dr. Lexy Elizondo MD Normal [facility] Discharge Instructionon 03-01 Discharge Instruction [facility] Medical Records Department [address] [place] [address] Instructions for Home/Discharge Instructions 03/22/24 1001 MR#: [id number] Acct: [id number] Name: GRACIELA JAIN Rep #: [id number] : 1975 49 From: Abdullahi Wilder MD PCP: Dr. Lexy Elizondo MD Status:[facility] Discharge Instructions Diet Discharge Diet: Light diet - advance as tolerated Activity Discharge Activity: May Shower (tomorrow) Additional Activity Instructions:: Alternate Ibuprofen and Tylenol for pain, oxycodone for breakthrough pain Dressing / Incision Call your doctor if your incision/area has: Continuous Slow Oozing, Sudden Increased Bleeding, Increased Pain/ Swelling, Increased Redness, Foul Smelling Discharge and Swelling at the incision site Call your doctor if you observe: Fever of 101 or Higher Change Dressing in: 2 days Cleanse incision/area with: Soap Water Follow Up Care Please Follow Up With: Abdullahi Wilder MD When: Please call to schedule 2 week follow up appointment. [phone] Test Results: Test results from this visit will be discussed in further detail at your follow-up appointment, if applicable. Discharge Plan Admission Attending Provider: Abdullahi Wilder Primary Care Provider: Lexy Elizondo Instructions Print Language: Swedish Discharge Orders/Prescriptions Prescriptions: New oxycodone 5 mg tablet 5 - 10 mg PO Q6H PRN (Reason: pain) 5 Days Qty: 10 0RF No Action levothyroxine 75 MCG tablet 150 mcg PO DAILY Patient Comments: thyroid metoprolol succinate 25 MG tablet 25 mg PO 1500 Patient Comments: high blood pressure/heart losartan 25 mg tablet 25 mg PO 1500 Referrals / Follow Up: Lexy Elizondo MD [Primary Care Provider] - Disposition Disposition (needs filled in before D/C Order can be placed): Home, Self Care 03/22/24 1003 Abdullahi Wilder MD CC: Dr. Lexy Elizondo MD Signed [facility] MR/POSTOP.Arlen 03-22-2024 MR/POSTOP.[facility] Medical Records Department [address] [place] [address] Anesthesia Postop Eval I 03/22/24 0957 MR#: [id number] Acct: [id number] Name: GRACIELA JAIN Rep #: [id number] : 1975 49 From: Mary Dougherty PCP: Dr. Lexy Elizondo MD Status:[facility] Y Race: C Location: [place] [address] Anesthesia: Postop Eval I Current Vital Signs Temperature: 97.7 F Pulse Rate: 91 Blood Pressure: 124/70 Respiratory Rate: 18 Pulse Ox: 98 Assessment Airway patent: Yes Spontaneous unlabored respirations: Yes nausea: No Vomiting: No Anesthesia Complication: No Fluid Hydration Crystalloid volume administer (ml): 500 Total IV fluid infused: 500 Progress Note Anesthesia document: Postop Eval 1 completed: Yes 03/22/24957 Date Mary Vazquez Signature: Date CC: Signed Normal [facility] MR/NACMDEDD2ys 03-22-2024 [facility] Medical Records Department [address] [place] [address] Anesthesia Postop Eval II 03/22/24 1509 MR#: [id number] Acct: [id number] Name: GRACIELA JAIN Rep #: [id number] : 1975 49 From: Aubrey Murray MD PCP: Dr. Lexy Elizondo MD Status:[facility] Y Race: C Location: [facility] Anesthesia Postop Eval I Sum Postop Eval Completion status Anesthesia document: Postop Eval 1 completed: Yes Anesthesia Postop Eval I Summary Anesthesia Postop Eval I Summary: Anesthesia Postop Eval I: Assessment Summary Airway patent Yes 03/22/24 09:58 TEAM [email or web address] Spontaneous unlabored Yes 03/22/24 09:58 TEAM [email or web address] respirations Mental status nausea No 03/22/24 09:58 TEAM [email or web address].CSIR Vomiting No 03/22/24 09:58 TEAM [email or web address].CSIR Anesthesia Postop Eval I: Fluid Summary Crystalloid volume administer 500 03/22/24 09:58 TEAM [email or web address].CSIR (ml) Colloids volume administered ( ml) Blood Product volume administered (ml) Total IV fluid infused 500 03/22/24 09:58 TEAM [email or web address] Anesthesia Postop Eval I: Summary Notes Anesthesia Complication No 03/22/24 09:58 TEAM [email or web address] Anesthesia Complication Comment: Post-operative progress note Anesthesia: Postop Eval II Evaluation Mental status: Awake and Calm Pain Level: 1 nausea: No Vomiting: No Complications Anesthesia Complication: No 03/22/24 1510 Date Aubrey Ascencioigncatherine Signature: Date CC: Signed Normal [facility] Operative Reporton 4 Operative Report [facility] Medical Records Department [address] [place] [address] Operative Report 03/22/24 0958 MR#: [id number] Acct: [id number] Name: GRACIELA JAIN Rep #: [id number] : 1975 49 From: Abdullahi Wilder MD PCP: Dr. Lexy Elizondo MD Status:[facility] Location: [place] [address] Operative Report (Standard) Operative Information Date of Procedure: 03/22/24 Pre-Operative Diagnosis: 1. Right shoulder lipoma 2. Right neck lipoma Post-Operative Diagnosis: Same Surgery/Procedure Performed: Excision of right shoulder lipoma and right neck lipoma laboratory phlebotomist: Yes Bow Maker Custom: Solomon Menendez Tasks completed by dental assistant: Retracting Type of Anesthesia: General/Regional RN Documented Start/Stop Times: Operation Date: 03/22/24 09:00 Case Time Into Pre-Op 03/22/24 07:43 Out of Pre-Op 03/22/24 08:47 Anesthesia Start 03/22/24 08:51 Into Room 03/22/24 08:51 Procedure Start 03/22/24 09:15 Procedure End 03/22/24 09:46 Anesthesia End 03/22/24 09:54 Out of Room 03/22/24 09:54 Procedure Start Time: 09:15 Procedure Stop Time: :46 Select all DRAINS/GRAFTS/IMPLAN TS that apply: None Estimated Blood Loss: 10 Specimen collected: Yes Description of specimen(s) removed: 1. Right shoulder mass 2. right neck mass Description of surgery: Patient was brought to the operating room and general anesthesia was induced. The patient was placed in prone position. The right shoulder was then prepped and draped. An incision was marked and injected with local anesthetic. Incision was made with a scalpel and deepened to the lipoma. It was removed is much as possible in 1 piece. It measured approximately 10 to 11 cm. There were a few small pieces that came out afterwards. The cavity was swept and there was no further lipoma identified. The skin was closed with interrupted 3-0 Vicryl sutures and a running 4-0 Monocryl suture. Steri-Strips and a bandage were applied. Next the right neck was prepped and draped in usual sterile fashion. An incision was marked and injected with local anesthetic. Incision was made and deepened to lipoma. The lipoma was very adherent and scarred in and did not easily come out. It was sharply dissected free and sent for pathology. The cavity was irrigated and suctioned dry and closed with interrupted 3-0 Vicryl sutures. Dermabond was applied. Surgical Findings: Large lipoma of the right shoulder and small lipoma of the right neck Complications Complications: No Admit VTE Documentation VTE Mechan Device Prophylaxis: SCD's 03/22/24 1000 Cosigner Signature (if applicable): CC: Dr. Abdullahi Wilder MD; Dr. Lexy Elizondo MD Signed Normal [facility] Surgery Specimen Level Homar 03-22-2024 Surgery Specimen Level IV Patient Age/Sex Location Account Attending Physician GRACIELA JAIN 49/M [facility] [id number] Dr. Abdullahi Wilder MD Specimen: [id number] Received: 03/22/24 Status: SHIVAM Valentine Num: [id number] Spec Type: LIPOMA Subm Dr: Dr. Abdullahi Wilder MD HEADER OPERATION: Excision, lipoma on right shoulder and right behind the ear PRE-OP DIAGNOSIS: Multiple lipomas TISSUE SUBMITTED: A. Right shoulder mass, B. Right neck mass MICROSCOPIC DIAGNOSIS A. Right shoulder mass, excision: Mature adipose tissue consistent with lipoma with focal areas of fibrolipoma. B. Right neck mass, excision: Mature adipose tissue consistent with lipoma. 03/23/2024 MICROSCOPIC DESCRIPTION Slides are reviewed. GROSS DESCRIPTION A. Received in fixative is one container labeled with the patient name and designated right shoulder lipoma. The specimen consists of multiple irregular pieces of adipose tissue measuring 11 x 10 x 3 cm. Sections reveal yellow adipose cut surfaces without areas of hemorrhage, necrosis or cystic degeneration. Ethanol Operations Manager sections are submitted in four cassettes. B.Received in fixative is one container labeled with the patient name and designated right neck lipoma. The specimen consists of multiple irregular pieces of adipose tissue measuring 5 x 3 x 0.3 cm. Sections reveal yellow adipose cut surfaces without areas of hemorrhage, necrosis or cystic degeneration. Entire specimen is submitted in two cassettes. /SJ:cc 03/22/24 TC:1 CPT: 99794 x2 Patient Age/Sex Location Account Attending Physician GRACIELA JAIN 49/M [facility] [id number] Dr. Abdullahi Wilder MD Signed (signature on file) Dr. Ray Guzman MD 03/23/24 1435 Normal [facility] Comment on above: Performed By: #### P SUIV ####[facility] [address] [place], [address] Surgery Visit Reporton 02-18 Surgery Visit Report [facility] [address] [place] [address] OFFICE VISIT Date of Service: 02/19/24 MR#: [id number] Acct: [id number] Name: GRACIELA JAIN Rep #: [id number] : 1975 Provider: Dr. Abdullahi delatorre MD Age/Sex: 48/M Location: [facility] Status: Signed Intake Vital Signs 03/28/23 06:32 02/19/24 08:31 Height 6 ft 3 in 6 ft 3 in Weight: 285 lb BMI 35.6 BP 164/84 H Blood Pressure Location Rt brachial Position Sitting Respiration 16 Intake Visit Reasons: LIPOMAS ON SHOULDER AND BEHIND EAR Chief Complaint: lipomas News Production Assistant Required: No Is patient in pain?: No Allergies No Known Allergies Allergy (Verified 02/19/24 08:31) Medications ???Medication ???Instructions ???Recorded ???Confirmed ???Type levothyroxine 75 mcg tablet 150 mcg PO DAILY 08/07/14 02/19/24 History metoprolol succinate 25 mg 25 mg PO 1500 08/22/14 02/19/24 History tablet,extended release 24 hr losartan 25 mg tablet 25 mg PO 1500 03/18/23 02/19/24 History tadalafil 10 mg tablet (Cialis) 10 mg PO QDAY PRN 02/19/24 02/19/24 History Have you fallen in the past year?: No PFSH Medical History Loss of hearing Wears glasses Thyroid disease Former smoker History of echocardiogram History of stress test Cardiology follow-up encounter History of irregular heartbeat Hypertension Hx of lipoma Surgical History S/P vasectomy History of toe surgery Hx of anterior cruciate ligament surgery History of lateral meniscus repair of right knee Hx of hand surgery History of laparoscopic cholecystectomy Family History Father Heart disease Hypertension CAD (coronary artery disease) Mother Hypertension Social History Smoking Status: Former smoker alcohol intake: current HPI HPI HPI: Patient is a 48-year-old male here for multiple lipomas. He has a lipoma behind his right ear as behind his right shoulder blade. The one behind his shoulder blade is very a large as has been growing for several years. The one behind his ear has been growing larger as well. ROS General General: No weight change, appetite, fatigue, colon cancer, breast cancer or weakness HEENT HEENT: No difficulty swallowing, eye injury, eye surgery, swollen glands or hoarseness Endo Endocrine: Yes thyroid disease; No diabetes mellitus, thyroid cancer, Hair loss, heat intolerance or cold intolerance Skin Skin: No rash or changing moles Breast Breast: No left breast lump, right breast lump, nipple discharge, breast pain, abnormal mammogram, abnormal US or breast enlargement Musc Musculoskeletal: Yes arthritis; No back problems, rheumatoid arthritis, gout or joint pain Cardio Cardiovascular: Yes high blood pressure; No murmur, pacemaker, heart disease, atrial fibrillation, heart attack, heart stent, palpitations, shortness of breat with exertion or chest pain Psych Psychiatric: No depression, anxiety or hearing voices Resp Respiratory: No shortness of breath, No sleep apnea, No cough, No COPD, No asthma, No emphysema and No wheezing Gastro Gastrointestinal: No abdominal pain, No nausea or vomiting, No diarrhea, No constipation, No blood in stool, No acid reflux, No hemorrhoids, No ulcers, No gallbladder problem and No black,tarry stools Ced Hematologic: No blood thinners, No blood disorders, No bleeding, No anemia and No blood clots Neuro Neurologic: No system reviewed and no additional complaints, except as documented, No as per HPI, No abnormal gait, No abnormal hearing, No abnormal movements, No abnormal speech, No behavioral changes, No burning sensations, No confusion, No convulsions, No disequilibrium, No dizziness, No localized weakness, No frequent falls, No headache(s), No lack of coordination, No loss of vision, No memory loss, No numbness, No other visual disturbances, No radicular pain, No restless legs, No sensory deficit, No syncope, No tingling, No tremor(s), No weakness and No other Exam Const General: cooperative Orientation: alert and oriented x3 HENMT Head: normal to inspection Neck Neck: normal visual inspection and full ROM Chest Chest palpation inspection: normal inspection of the chest Resp Effort Inspection: normal respiratory effort Auscultation: clear to auscultation bilaterally Cardio Rate: regular rate Rhythm: regular rhythm GI Inspection: non-distended Palpation: soft and nontender Skin General: no rashes or lesions noted Neuro General: patient alert and patient oriented x3 Extrem General: full ROM Psych Appearance: grossly normal Mental Status: ment (more content not included)... Normal [facility] Vitamin B12on 10-02-2023 Cobalamin (Vitamin B12) [Mass/Vol] 97 pg/mL Low 211-911 [facility] Comment on above: Performed By: #### L 503.0105, L501.9520, L506.0250 ####[facility] [address] [place], [place], [id number] Folates, (Folic Acid)on FOLATES 34.30 ng/mL Normal 3.1-55.4 [facility] Comment on above: Order Comment: N Result Comment: Slig ht Hemolysis, Result may be falsely increased. Performed By: #### L 503.0105, L501.9520, L506.0250 ####[facility] [address] [place], [address] Thyroid Stim Hormone (TSH)on 10-01-2023 TSH 5.27 uIU/mL High 0.358-3.74 [facility] Comment on above: Order Comment: N Performed By: #### L 503.0105, L501.9520, L506.0250 #### [facility] [address] [place], [address] CBC W/Diff, Automatedon 06-2 0-2024 Absolute Lymph 1.56 X10 3/uL Normal 0.83-4.51 [facility] Comment on above: Performed By: #### L 100.0100, L506.0400, L501.9520, L500.4050 #### [facility] [address] [place], [address] Absolute Neut 2.6 X10 3/uL Normal 2.0-7.7 [facility] Comment on above: Performed By: #### L 100.0100, L506.0400, L501.9520, L500.4050 #### [facility] [address] [place], [address] Basophils/100 WBC (Bld) 0.6 % Normal 0-1 [facility] Comment on above: Performed By: #### L 100.0100, L506.0400, L501.9520, L500.4050 #### [facility] [address] [place], [address] Eosinophils/100 WBC (Bld) 4.9 % Normal 0-5 [facility] Comment on above: Performed By: #### L 100.0100, L506.0400, L501.9520, L500.4050 #### [facility] [address] [place], [address] Erythrocyte distribution width (RBC) [Ratio] 14.7 % High 11.6-14.6 [facility] Comment on above: Performed By: #### L 100.0100, L506.0400, L501.9520, L500.4050 #### [facility] [address] [place], [address] Hematocrit (Bld) [Volume fraction] 42.5 % Normal 40-54 [facility] Comment on above: Performed By: #### L 100.0100, L506.0400, L501.9520, L500.4050 #### [facility] [address] [place], [address] Hemoglobin (Bld) [Mass/Vol] 14.6 g/dL Normal 13.0-16.5 [facility] Comment on above: Performed By: #### L 100.0100, L506.0400, L501.9520, L500.4050 #### [facility] [address] [place], [address] IG% 0.200 Normal 0.0-0.9 [facility] Comment on above: Result Comment: IG% - Immature Granulocytes (promyelocytes, myelocytes and metamyelocytes) > 1% indicates that a LEFT SHIFT is Present. Performed By: #### L 100.0100, L506.0400, L501.9520, L500.4050 #### [facility] [address] [place], [address] Lymphocytes/100 WBC (Bld) 31.8 % Normal 19-41 [facility] Comment on above: Performed By: #### L 100.0100, L506.0400, L501.9520, L500.4050 #### [facility] [address] [place], [address] MCH (RBC) [Entitic mass] 36.3 pg High 27.0-32.0 [facility] Comment on above: Performed By: #### L 100.0100, L506.0400, L501.9520, L500.4050 #### [facility] [address] [place], [address] MCHC (RBC) [Mass/Vol] 34.4 g/dL Normal 32-36 [facility] Comment on above: Performed By: #### L 100.0100, L506.0400, L501.9520, L500.4050 #### [facility] [address] [place], [address] MCV (RBC) [Entitic vol] 105.7 fL High 80-94 [facility] Comment on above: Performed By: #### L 100.0100, L506.0400, L501.9520, L500.4050 #### [facility] [address] [place], [address] Monocytes/100 WBC (Bld) 9.6 % Normal 0-10 [facility] Comment on above: Performed By: #### L 100.0100, L506.0400, L501.9520, L500.4050 #### [facility] [address] [place], [address] Neutrophils/100 WBC (Bld) 52.9 % Normal 47-70 [facility] Comment on above: Performed By: #### L 100.0100, L506.0400, L501.9520, L500.4050 #### [facility] [address] [place], [address] Nucleated RBC (Bld) [#/Vol] 0 10*3/uL Normal 0-5 [facility] Comment on above: Performed By: #### L 100.0100, L506.0400, L501.9520, L500.4050 #### [facility] [address] [place], [address] Platelet mean volume (Bld) [Entitic vol] 10.0 fL Normal 6.2-12.0 [facility] Comment on above: Performed By: #### L 100.0100, L506.0400, L501.9520, L500.4050 #### [facility] [address] [place], [address] Platelets (Bld) [#/Vol] 194 10*3/uL Normal 150-450 [facility] Comment on above: Performed By: #### L 100.0100, L506.0400, L501.9520, L500.4050 #### [facility] [address] [place], [address] RBC (Bld) [#/Vol] 4.02 10*6/uL Low 4.6-6.2 [facility] Comment on above: Performed By: #### L 100.0100, L506.0400, L501.9520, L500.4050 #### [facility] [address] [place], [address] RDW SD 57.5 fl High 35.1-43.9 [facility] Comment on above: Performed By: #### L 100.0100, L506.0400, L501.9520, L500.4050 #### [facility] [address] [place], [address] WBC (Bld) [#/Vol] 4.9 10*3/uL Normal 4.4-11.0 [facility] Comment on above: Performed By: #### L 100.0100, L506.0400, L501.9520, L500.4050 #### [facility] [address] [place], [address] Comprehensive Metabolic Prof [facility] 09-18-2023 Albumin [Mass/Vol] 3.8 g/dL Normal 3.2-5.0 [facility] Comment on above: Performed By: #### L 100.0100, L506.0400, L501.9520, L500.4050 #### [facility] [address] [place], [address] Albumin/Globulin [Mass ratio] 1.1 {ratio} Normal 0.9-2.4 [facility] Comment on above: Performed By: #### L 100.0100, L506.0400, L501.9520, L500.4050 #### [facility] [address] [place], [address] ALK P 59 U/L Normal 45-117 [facility] Comment on above: Performed By: #### L 100.0100, L506.0400, L501.9520, L500.4050 #### [facility] [address] [place], [address] ALT [Catalytic activity/Vol] 82 U/L High 16-61 [facility] Comment on above: Performed By: #### L 100.0100, L506.0400, L501.9520, L500.4050 #### [facility] [address] [place], [address] AST [Catalytic activity/Vol] 70 U/L High 15-37 [facility] Comment on above: Performed By: #### L 100.0100, L506.0400, L501.9520, L500.4050 #### [facility] [address] [place], [address] Bilirubin [Mass/Vol] 1.60 mg/dL High 0.20-1.00 [facility] Comment on above: Result Comment: For patients on eltrombopag therapy, use of Dimension Sunset TBIL is not recommended. Performed By: #### L 100.0100, L506.0400, L501.9520, L500.4050 #### [facility] [address] [place], [address] BUN/CRE 15.0 RATIO Normal 10-20 [facility] Comment on above: Performed By: #### L 100.0100, L506.0400, L501.9520, L500.4050 #### [facility] [address] [place], [address] CA,Total 9.0 mg/dL Normal 8.5-10.1 [facility] Comment on above: Performed By: #### L 100.0100, L506.0400, L501.9520, L500.4050 #### [facility] [address] [place], [address] Chloride [Moles/Vol] 108 mmol/L High 98-107 [facility] Comment on above: Performed By: #### L 100.0100, L506.0400, L501.9520, L500.4050 #### [facility] [address] [place], [address] CO2 [Moles/Vol] 25.0 mmol/L Normal 21.0-32.0 [facility] Comment on above: Performed By: #### L 100.0100, L506.0400, L501.9520, L500.4050 #### [facility] [address] [place], [address] Creatinine [Mass/Vol] 0.87 mg/dL Normal 0.70-1.30 [facility] Comment on above: Result Comment: The validity of the calculated GFR GFRAA in patients over 70 years has not been determined. Clinical correlation is essential. Performed By: #### L 100.0100, L506.0400, L501.9520, L500.4050 #### [facility] [address] [place], [address] EST GFR - AA 120 mL/min Normal >60 [facility] Comment on above: Result Comment: Afri can Norwegian GFR Calc Performed By: #### L 100.0100, L506.0400, L501.9520, L500.4050 #### [facility] [address] [place], [address] GAP 9 Normal 5-15 [facility] Comment on above: Performed By: #### L 100.0100, L506.0400, L501.9520, L500.4050 #### [facility] [address] [place], [address] GFR/1.73 sq M.predicted among non-blacks MDRD (S/P/Bld) [Vol rate/Area] 99 mL/min/{1.73_m2} Normal >60 [facility] Comment on above: Result Comment: Non- GFR Calc Performed By: #### L 100.0100, L506.0400, L501.9520, L500.4050 #### [facility] [address] [place], [address] Globulin (S) [Mass/Vol] 3.4 g/dL Normal 2.2-4.2 [facility] Comment on above: Performed By: #### L 100.0100, L506.0400, L501.9520, L500.4050 #### [facility] [address] [place], [address] Glucose [Mass/Vol] 107 mg/dL High 74-106 [facility] Comment on above: Result Comment: Fast ing Glucose result from 100 to 125 mg/dL suggests IMPAIRED HOMEOSTASIS per A.D.A. criteria. Performed By: #### L 100.0100, L506.0400, L501.9520, L500.4050 #### [facility] [address] [place], [address] Potassium [Moles/Vol] 4.1 mmol/L Normal 3.5-5.1 [facility] Comment on above: Performed By: #### L 100.0100, L506.0400, L501.9520, L500.4050 #### [facility] [address] [place], [address] Sodium [Moles/Vol] 142 mmol/L Normal 136-145 [facility] Comment on above: Performed By: #### L 100.0100, L506.0400, L501.9520, L500.4050 #### [facility] [address] [place], [address] T PROT 7.2 g/dL Normal 6.4-8.2 [facility] Comment on above: Performed By: #### L 100.0100, L506.0400, L501.9520, L500.4050 #### [facility] [address] [place], [address] Urea nitrogen [Mass/Vol] 13 mg/dL Normal 7-18 [facility] Comment on above: Performed By: #### L 100.0100, L506.0400, L501.9520, L500.4050 #### [facility] [address] [place], [address] T4 Free Directon 09-18-2023 T4 FREE DIRECT 1.23 ng/dL Normal 0.76-1.46 [facility] Comment on above: Performed By: #### L 100.0100, L506.0400, L501.9520, L500.4050 #### [facility] [address] [place], [address] Thyroid Stim Hormone (TSH)on 09-18-2023 TSH 3.67 uIU/mL Normal 0.358-3.74 [facility] Comment on above: Performed By: #### L 100.0100, L506.0400, L501.9520, L500.4050 #### [facility] [address] [place], [address] Inital Evaluation (1) - PTon 05-30-2023 Inital Evaluation (1) - PT [facility] [address] [place] [address] / REHABILITATION SERVICES INITIAL EVALUATION MR#: [id number] Acct: [id number] Name: GRACIELA JAIN Rep #: [id number] : 1975 48 From: Juvencio Montgomery DPT, OCS, CSCS Referring Dr.: SOLITARIO Cantor Status: REG RCR Insurance: [facility] [id number] SELF PAY INSURANCE Patient's Visit Information Visit Information Visit Information: GRACIELA Chen FATZINGER is a 48 year old M referred to Physical Therapy by Dr. Moshe Cantor DPM with a diagnosis of s/p R hammer toe correction MTPJ plate repair.. Date of Evaluation: 05/30/23 Physical Therapist: Juvencio Montgomery, DPT, OCS, CSCS Visit Plan Frequency: 1-2x /Week Duration: 4-6 Weeks Plan: 1-2x/week, 4-6 weeks as needed(pt wants to keep minimum due to poor insurance.) ROM, strength, proprioceptive and gait exercises for progression of funciton Today: toe curls, seated heel raises, gastroc soleus stretch, seated heel raises 2x/day Next: ankle 4 way, standing heel raises, sls reach medial, step and recover and ensure weaning of boot. Subjective Subjective: 03/28/24 R foot surgery fixing tendon on toesand fixed hammer toe. 4 screws. In a boot for two months. Surgery helped, has had no no pain. is currently weaning out of boot at 3 hrs day out of boot and just gets a little sore in the evening in big toe. Feels like he limps a little bit but did prior to surgery. Sleep is OK. Employed working for [employer] in field job in [employer] Has been off since 03/17. Schedule day back 06/26. Hobbies 3 kids 20, 18, 15. Travel volleyball Basic ADLs, all Ok right now. Pain R big toe: Pain Intensity (Out of 10): 0 Pain Intensity Range: 0 and 3 Objective Objective: Ambulates into PT with shoes on and no boot and I with some outside of R foot WB and avoids push off on R. I gait. Transfers bed and chair I albeit slow to bed due to back stiffness whcih is way improved from 2 weeks ago. R big toe extension to 20 degrees and flexion to 15 degrees sore to move it, 2nd toes with very little movement on R foot. Incisions bottom and top of foot healed well and not overly scarred. Not tender. Ankles Df -3 B and very tight in gastroc and soleus. Inv/ev/PF symmetrical and WFL. stregnth ankle 4+/5 B without pain. strength big toe is flexion 4- adn ext 4- vs 4+ on L. reflexes 2/3 patella and achilles Sensation LE WNL to gross light touch. Balance/Special Test Scores Lower Extremity Functional Score: 42 Goals Goal 1:: 2 degrees DF R ankle to improve walking Goal Time Frame: 4-6 Weeks Goal 2:: I appropriate HEP for proprioception , ROM and strength Goal Time Frame: 4-6 Weeks Goal 3:: wean out of boot and walk community without deviations Goal Time Frame: 4-6 Weeks Goal 4:: Pt feel ready to return to work and 90% back to normal mobility Goal Time Frame: 4-6 Weeks Goal 5:: LEFS score 55 Goal Time Frame: 4-6 Weeks Rehabilitation Potential Physical Therapy Diagnosis: limited ROM and flexibility and soreness effecting function Rehabilitation Potential: Good Anticipated Interventions Patient/Client Instruction: Educate patient on: Condition and Plan of Care For the Purpose of:: To decrease pain, To increase ROM, To improve nutrient delivery to tissue, To improve muscle performance and motor function, To increase tolerance to activity/condition/p osition, To improve ability of physical actions for home/community/work/ leisure and To improve gait and locomotor functions Therapeutic Exercise to Include: Strength training, Flexibilty training, Gait and locomotor training, Passive ROM and Active ROM For the Purpose of:: To decrease pain, To increase ROM, To improve nutrient delivery to tissue, To improve muscle performance and motor function and To increase tolerance to activity/condition/p osition Text: Thank you for the opportunity to evaluate your patient. For Medicare and Medicare HMO plans, please review the plan of care and approve it. It will need to be FAXED BACK to us at [phone] for Medicare purposes. For Medicare only, by signing this I certify the plan of care. Please let me know if there are questions or concerns regarding this plan of care. Physician Signature: D ate: 05/30/23 0921 CC: SOLITARIO Cantor; Dr. Lexy Elizondo MD EBG Signed Normal [facility] Culture, Anaerobic Any Sourc alicia 05-12-2023 CUAN No anaerobic bacteria isolated. [facility] Comment on above: Performed By: #### M 100.1999, M100.3000, M100.4001 #### [facility] [address] [place], [place], [address] Wound Cultureon 05-12-2023 WC Staphylococcus epidermidis Amount Growth 2+ Staphylococcus epidermidis Amount Growth 2+ Staphylococcus aureus Amount Growth 1+ Staphylococcus epidermidis: REACTION cefOXitin Susc Islt POS Clindamycin.induced Susc Islt NEG Erythromycin Islt ALVA >=8 R Gentamicin Islt ALVA <=0.5 S levoFLOXacin Islt ALVA <=0.12 S Linezolid Islt ALVA 1 S Oxacillin Susc Islt >=4 R Tetracycline Islt ALVA >=16 R Vancomycin Islt ALVA 1 S Staphylococcus epidermidis: REACTION cefOXitin Susc Islt NEG Clindamycin Islt ALVA >=4 R Clindamycin.induced Susc Islt NEG Erythromycin Islt ALVA >=8 R Gentamicin Islt ALVA <=0.5 S levoFLOXacin Islt ALVA <=0.12 S Linezolid Islt ALVA 1 S Oxacillin Susc Islt <=0.25 S Tetracycline Islt ALVA >=16 R Vancomycin Islt ALVA 1 S Staphylococcus aureus: REACTION cefOXitin Susc Islt NEG Doxycycline Islt ALVA <=0.5 S Clindamycin Islt ALVA 0.25 S Clindamycin.induced Susc Islt NEG Erythromycin Islt ALVA <=0.25 S Gentamicin Islt ALVA <=0.5 S levoFLOXacin Islt ALVA 0.25 S Linezolid Islt ALVA 2 S Moxifloxacin Islt ALVA <=0.25 S Oxacillin Susc Islt <=0.25 S Tetracycline Islt ALVA <=1 S TMP SMX Islt ALVA <=10 S Vancomycin Islt ALVA <=0.5 [facility] Comment on above: Performed By: #### M 100.1999, M100.3000, M100.4001 #### [facility] [address] [place], [address] Gram Stainon 05-09-2023 GS Gram Stain 4+ Red Blood Cells 2+ Gram positive cocci No White Blood Cells No Epithelial cells Normal [facility] Comment on above: Performed By: #### M 100.2000, M100.3000, M100.4001 #### [facility] [address] [place], [address] Anaerobic cultureOrdered By: Moshe Cantor on 05-08-2023 Bacteria identified Anaer cx Nom (Unsp spec) No anaerobic bacteria isolated. [facility] Bacteria identified Cx Nom ( Wound)Ordered By: Moshe Cantor on 05-08-2023 Wound Culture Staphylococcus epidermidis [facility] Wound Culture Staphylococcus epidermidis#2 [facility] Wound Culture Staphylococcus aureus [facility] Gram stain for investigation of transfusion reactionOrdered By: Moshe Cantor on 05-08-2023 Microscopic observation Gram stain Nom (Unsp spec) [facility] Absolute lymphocyte countOrd ered By: Lexy Elizondo on 03-03-2023 Lymphocytes Auto (Unsp spec) [#/Vol] 2.13 10*3/uL 0.83-4.51 [facility] Basophil percentageOrdered B y: Lexy Elizondo on 03-03-2023 Basophils/100 WBC (Bld) 0.7 % 0-1 [facility] Bilirubin [Mass/Vol] 0.80 mg/dL 0.20-1.00 [facility] Comment on above: For patients on eltr ombopag therapy, use of Dimension Sunset TBIL is not recommended. Chloride [Moles/Vol] 106 mmol/L 98-107 [facility] Eosinophils/100 WBC (Bld) 1.1 % 0-5 [facility] Glucose [Mass/Vol] 77 mg/dL 74-106 [facility] Neutrophils (Bld) [#/Vol] 5.3 10*3/uL 2.0-7.7 [facility] Neutrophils/100 WBC (Bld) 64.5 % 47-70 [facility] Potassium [Moles/Vol] 3.9 mmol/L 3.5-5.1 [facility] Protein [Mass/Vol] 7.1 g/dL 6.4-8.2 [facility] Sodium [Moles/Vol] 140 mmol/L 136-145 [facility] WBC (Bld) [#/Vol] 8.2 10*3/uL 4.4-11.0 [facility] Blood erythrocytes count (nu mber/volume)Ordered By: Lexy Elizondo on 03-03-2023 RBC (Bld) [#/Vol] 4.68 10*6/uL 4.6-6.2 [facility] Blood hemoglobin measurement (mass/volume)Ordered By: Lexy Elizondo on 03-03-2023 Hemoglobin (Bld) [Mass/Vol] 15.9 g/dL 13.0-16.5 [facility] Blood lymphocytes/100 leukoc ytesOrdered By: Lexy Elizondo on 03-03-2023 Lymphocytes/100 WBC (Bld) 25.9 % 19-41 [facility] Blood monocytes/100 leukocyt esOrdered By: Lexy Elizondo on 03-03-2023 Monocytes/100 WBC (Bld) 7.3 % 0-10 [facility] Blood platelet mean volumeOr dered By: Lexy Elizondo on 03-03-2023 Platelet mean volume (Bld) [Entitic vol] 10.2 fL 6.2-12.0 [facility] Determination of erythrocyte mean corpuscular volume (MCV)Ordered By: Lexy Elizondo on 03-03-2023 MCV (RBC) [Entitic vol] 102.8 fL 80-94 [facility] Hematocrit Auto (Bld) [Volum e fraction]Ordered By: Lexy Elizondo on 03-03-2023 Hematocrit (Bld) [Volume fraction] 48.1 % 40-54 [facility] - Chemistry and C hemistry - challengeOrdered By: Lexy Elizondo on 03-03-2023 ALP [Catalytic activity/Vol] 67 U/L 45-117 [facility] ALT [Catalytic activity/Vol] 45 U/L 16-61 [facility] CO2 [Moles/Vol] 30.0 mmol/L 21.0-32.0 [facility] Globulin (S) [Mass/Vol] 3.3 g/dL 2.2-4.2 [facility] Urea nitrogen/Creatinine [Mass ratio] 13.2 mg/mg 10-20 [facility] - Hematology and Cell countsOrdered By: Lexy Elizondo on 03-03-2023 Erythrocyte distribution width (RBC) [Entitic vol] 52.4 fL 35.1-43.9 [facility] Erythrocyte distribution width (RBC) [Ratio] 13.7 % 11.6-14.6 [facility] Immature granulocytes/100 WBC (Bld) 0.500 % 0.0-0.9 [facility] Comment on above: IG% - Immature Granu locytes (promyelocytes, myelocytes and metamyelocytes) > 1% indicates that a LEFT SHIFT is Present. MCH (RBC) [Entitic mass] 34.0 pg 27.0-32.0 [facility] Nucleated RBC/100 WBC (Bld) [Ratio] 0 % 0-5 [facility] MCHC Auto (RBC) [Mass/Vol]Or dered By: Lexy Elizondo on 03-03-2023 MCHC (RBC) [Mass/Vol] 33.1 g/dL 32-36 [facility] No Panel InformationOrdered By: Lexy Elizondo on 03-03-2023 Estimated GFR (MDRD) Amer 115 mL/min >60 [facility] Comment on above: GFR Calc Estimated GFR (MDRD) Non-Af Amer 95 mL/min >60 [facility] Comment on above: Non- GFR Calc Platelets bldOrdered By: Oren Elizondo on 03-03-2023 Platelets (Bld) [#/Vol] 223 10*3/uL 150-450 [facility] Serum or plasma albumin rivas urement (mass/volume)Ordered By: Lexy Elizondo on 03-03-2023 Albumin [Mass/Vol] 3.8 g/dL 3.2-5.0 [facility] Serum or plasma albumin/glob ulin mass ratioOrdered By: Lexy Elizondo on 03-03-2023 Albumin/Globulin [Mass ratio] 1.2 {ratio} 0.9-2.4 [facility] Serum or plasma calcium rivas urement (mass/volume)Ordered By: Lexy Elizondo on 03-03-2023 Calcium [Mass/Vol] 8.9 mg/dL 8.5-10.1 [facility] Serum or plasma creatinine m easurement (mass/volume)Ordered By: Lexy Elizondo on 03-03-2023 Creatinine [Mass/Vol] 0.91 mg/dL 0.70-1.30 [facility] Comment on above: The validity of the calculated GFR & GFRAA in patients over 70 years has not been determined. Clinical correlation is essential. Serum or plasma urea nitroge n measurement (mass/volume)Ordered By: Lexy Elizondo on 03-03-2023 Urea nitrogen [Mass/Vol] 12 mg/dL 7-18 [facility] Thin prep Papanicolaou smear with manual screeningOrdered By: Lexy Elizondo on 03-03-2023 Thin prep Papanicolaou smear with manual screening 29 U/L 15-37 [facility] Thin prep Papanicolaou smear with manual screening 4 5-15 [facility] - Chemistry and C hemistry - challengeOrdered By: Lexy Elizondo on 12-16-2022 Free T4 [Mass/Vol] 1.20 ng/dL 0.76-1.46 [facility] No Panel InformationOrdered By: Lexy Elizondo on 12-16-2022 Thyroid Stimulating Hormone (TSH) 4.65 uIU/mL 0.358-3.74 [facility] Absolute lymphocyte countOrd ered By: Dr. Elizondo on 09-19-2022 Lymphocytes Auto (Unsp spec) [#/Vol] 1.75 10*3/uL 0.83-4.51 [facility] Basophil percentageOrdered B y: Dr. Elizondo on 09-19-2022 Basophils/100 WBC (Bld) 1.1 % 0-1 [facility] Bilirubin [Mass/Vol] 0.90 mg/dL 0.20-1.00 [facility] Comment on above: For patients on eltr ombopag therapy, use of Dimension Sunset TBIL is not recommended. Chloride [Moles/Vol] 111 mmol/L 98-107 [facility] Cholesterol [Mass/Vol] 118 mg/dL <200 [facility] Comment on above: <200 mg/dL Desirable 200-240 mg/dL Borderline >240 mg/dL High Risk Eosinophils/100 WBC (Bld) 5.4 % 0-5 [facility] Glucose [Mass/Vol] 98 mg/dL 74-106 [facility] Neutrophils (Bld) [#/Vol] 2.9 10*3/uL 2.0-7.7 [facility] Neutrophils/100 WBC (Bld) 52.3 % 47-70 [facility] Potassium [Moles/Vol] 3.8 mmol/L 3.5-5.1 [facility] Protein [Mass/Vol] 6.7 g/dL 6.4-8.2 [facility] Sodium [Moles/Vol] 142 mmol/L 136-145 [facility] Triglyceride [Mass/Vol] 110 mg/dL <199 [facility] Comment on above: The drugs N-Acetylcy steine and Metamizole may falsely depress this assay.Serum Triglycerides Reference Interval Normal <150 mg/dL Borderline high 150 - 199 mg/dL High 200 - 499 mg/dL Very High > or = 500 mg/dL WBC (Bld) [#/Vol] 5.5 10*3/uL 4.4-11.0 [facility] Blood erythrocytes count (nu mber/volume)Ordered By: Dr. Elizondo on 09-19-2022 RBC (Bld) [#/Vol] 4.16 10*6/uL 4.6-6.2 [facility] Blood hemoglobin measurement (mass/volume)Ordered By: Dr. Elizondo on 09-19-2022 Hemoglobin (Bld) [Mass/Vol] 14.8 g/dL 13.0-16.5 [facility] Blood lymphocytes/100 leukoc ytesOrdered By: Dr. Elizondo on 09-19-2022 Lymphocytes/100 WBC (Bld) 31.6 % 19-41 [facility] Blood monocytes/100 leukocyt esOrdered By: Dr. Elizondo on 09-19-2022 Monocytes/100 WBC (Bld) 9.6 % 0-10 [facility] Blood platelet mean volumeOr dered By: Dr. Elizondo on 09-19-2022 Platelet mean volume (Bld) [Entitic vol] 10.6 fL 6.2-12.0 [facility] Determination of erythrocyte mean corpuscular volume (MCV)Ordered By: Dr. Elizondo on 09-19-2022 MCV (RBC) [Entitic vol] 101.2 fL 80-94 [facility] Hematocrit Auto (Bld) [Volum e fraction]Ordered By: Dr. Elizondo on 09-19-2022 Hematocrit (Bld) [Volume fraction] 42.1 % 40-54 [facility] Laboratory - Chemistry and C hemistry - challengeOrdered By: Dr. Elizondo on 09-19-2022 ALP [Catalytic activity/Vol] 51 U/L 45-117 [facility] ALT [Catalytic activity/Vol] 43 U/L 16-61 [facility] CO2 [Moles/Vol] 28.0 mmol/L 21.0-32.0 [facility] Globulin (S) [Mass/Vol] 3.1 g/dL 2.2-4.2 [facility] Urea nitrogen/Creatinine [Mass ratio] 12.8 mg/mg 10-20 [facility] Laboratory - Hematology and Cell countsOrdered By: Dr. Elizondo on 09-19-2022 Erythrocyte distribution width (RBC) [Entitic vol] 58.3 fL 35.1-43.9 [facility] Erythrocyte distribution width (RBC) [Ratio] 15.8 % 11.6-14.6 [facility] Immature granulocytes/100 WBC (Bld) 0.000 % 0.0-0.9 [facility] Comment on above: IG% - Immature Granu locytes (promyelocytes, myelocytes and metamyelocytes) > 1% indicates that a LEFT SHIFT is Present. MCH (RBC) [Entitic mass] 35.6 pg 27.0-32.0 [facility] Nucleated RBC/100 WBC (Bld) [Ratio] 0 % 0-5 [facility] MCHC Auto (RBC) [Mass/Vol]Or dered By: Dr. Elizondo on 09-19-2022 MCHC (RBC) [Mass/Vol] 35.2 g/dL 32-36 [facility] No Panel InformationOrdered By: Dr. Elizondo on 09-19-2022 Estimated GFR (MDRD) Amer 122 mL/min >60 [facility] Comment on above: GFR Calc Estimated GFR (MDRD) Non-Af Amer 101 mL/min >60 [facility] Comment on above: Non- GFR Calc Thyroid Stimulating Hormone (TSH) 7.78 uIU/mL 0.358-3.74 [facility] Platelets bldOrdered By: Dr. Elizondo on 09-19-2022 Platelets (Bld) [#/Vol] 215 10*3/uL 150-450 [facility] Serum or plasma albumin rivas urement (mass/volume)Ordered By: Dr. Elizondo on 09-19-2022 Albumin [Mass/Vol] 3.6 g/dL 3.2-5.0 [facility] Serum or plasma albumin/glob ulin mass ratioOrdered By: Dr. Elizondo on 09-19-2022 Albumin/Globulin [Mass ratio] 1.2 {ratio} 0.9-2.4 [facility] Serum or plasma calcium rivas urement (mass/volume)Ordered By: Dr. Elizondo on 09-19-2022 Calcium [Mass/Vol] 8.6 mg/dL 8.5-10.1 [facility] Serum or plasma cholesterol in HDL measurement (mass/volume)Ordered By: Dr. Elizondo on 09-19-2022 Cholesterol in HDL [Mass/Vol] 33 mg/dL >40 [facility] Comment on above: The drugs N-Acetylcy steine and Metamizole may falsely depress this assay. Reference Range HDL <40 mg/dL Low HDL Cholesterol HDL >or= 60 mg/dL High HDL Cholesterol Serum or plasma cholesterol in VLDL measurement (mass/volume)Ordered By: Dr. Elizondo on 09-19-2022 Cholesterol in VLDL [Mass/Vol] 22 mg/dL 5-40 [facility] Serum or plasma creatinine m easurement (mass/volume)Ordered By: Dr. Elizondo on 09-19-2022 Creatinine [Mass/Vol] 0.86 mg/dL 0.70-1.30 [facility] Comment on above: The validity of the calculated GFR & GFRAA in patients over 70 years has not been determined. Clinical correlation is essential. Serum or plasma low density lipoprotein (LDL) cholesterol measurement (mass/volume)Ordered By: Dr. Elizondo on 09-19-2022 Cholesterol in LDL [Mass/Vol] 63 mg/dL 0-130 [facility] Serum or plasma urea nitroge n measurement (mass/volume)Ordered By: Dr. Elizondo on 09-19-2022 Urea nitrogen [Mass/Vol] 11 mg/dL 7-18 [facility] Thin prep Papanicolaou smear with manual screeningOrdered By: Dr. Elizondo on 09-19-2022 Thin prep Papanicolaou smear with manual screening 38 U/L 15-37 [facility] Thin prep Papanicolaou smear with manual screening 3 5-15 [facility] CNCOon 03-01-2022 CNCO Letter Text [facility] CNPNon 02-04-2022 CNPN Telephone (360SHOPS) CRISTOBALGRACIELA Chen ([id number]) 1975 M Date Time Provider Department 02/04/22 JOSE LUIS LYNNE During your visit today, we recorded the following information about you: Jarvis Millan LPN 02/04/2022 1:33 PM Signed Per Brian Lynne APRN patient is due for blood work to check his thyroid TSH level. Brian refilled patient Levothyroxine but said Graciela needs to get his TSH checked. I called patient and he did not answer. I left a message for patient to return call to office. Jarvis Millan LPN February 04, 2022 1:33 PM Jarvis Millan LPN 03/01/2022 2:32 PM Signed I left a message for patient Graciela to return call to office. Also, I sent a letter explaining to Graciela that he is due for lab work for his thyroid and I mailed the TSH lab order to patient's home. Jarvis Millan LPN March 01, 2022 2:29 PM Allergies As of Date: 02/04/2022 (No Known Allergies) Date Reviewed: 04/07/2016 Reviewed by: Lise Tyson LPN - Fully Assessed Reason for Visit: Lab Orders [4588] Cmt: Due for TSH Prescriptions as of 03/01/2022 - levothyroxine (SYNTHROID) 137 mcg tablet TAKE 1 TABLET BY MOUTH IN THE MORNING - Tadalafil (CIALIS) 10 mg tablet - metoprolol succinate ER (TOPROL XL) 25 mg 24 hr tablet Take 25 mg by mouth once daily. - codeine-guaiFENesin (ROBITUSSIN AC) 10-100 mg/5 mL syrup Take 5-10 mL by mouth four times daily as needed for Cough. May cause drowsiness. - guaiFENesin (MUCINEX) 600 mg 12 hr tablet Take 2 tablets by mouth twice daily. - codeine-guaiFENesin (ROBITUSSIN AC) 10-100 mg/5 mL syrup Take 5-10 mL by mouth four times daily as needed for Cough. May cause drowsiness. - Omeprazole 20 mg TbEC Take 20 mg by mouth once daily. - lisinopril 10 mg ORAL tablet Take 5 mg by mouth once daily. 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] 03/05/2005 Sterilization [Z30.2] 11/14/2008 Hypothyroid [E03.9] 08/19/2014 HTN (hypertension) [I10] 08/19/2014 Abdominal pain in male [R10.9] 08/19/2014 Cholecystitis, unspecified [K81.9] 08/29/2014 Encounter Status:Closed by JARVIS MILLAN on 02/15/22 [facility] Absolute lymphocyte counton 07-09-2021 Lymphocytes Auto (Unsp spec) [#/Vol] 1.55 10*3/uL 0.83-4.51 [facility] Work Phone: Basophil percentageon 2021 Basophils/100 WBC (Bld) 1.2 % 0-1 [facility] Work Phone: Bilirubin [Mass/Vol] 0.90 mg/dL 0.20-1.00 [facility] Work Phone: Comment on above: For patients on eltr ombopag therapy, use of Dimension Sunset TBIL is not recommended. Chloride [Moles/Vol] 110 mmol/L 98-107 [facility] Work Phone: Cholesterol [Mass/Vol] 148 mg/dL <200 [facility] Work Phone: [phone] Comment on above: <200 mg/dL Desirable 200-240 mg/dL Borderline >240 mg/dL High Risk Eosinophils/100 WBC (Bld) 3.9 % 0-5 [facility] Work Phone: Glucose [Mass/Vol] 106 mg/dL 74-106 [facility] Work Phone: Comment on above: Fasting Glucose resu lt from 100 to 125 mg/dL suggests IMPAIRED HOMEOSTASIS per A.D.A. criteria. Neutrophils (Bld) [#/Vol] 3.5 10*3/uL 2.0-7.7 [facility] Work Phone: Neutrophils/100 WBC (Bld) 58.9 % 47-70 [facility] Work Phone: [phone] Potassium [Moles/Vol] 3.6 mmol/L 3.5-5.1 [facility] Work Phone: Protein [Mass/Vol] 6.8 g/dL 6.4-8.2 [facility] Work Phone: [phone] Sodium [Moles/Vol] 140 mmol/L 136-145 [facility] Work Phone: Triglyceride [Mass/Vol] 218 mg/dL [facility] Work Phone: [phone] Comment on above: The drugs N-Acetylcy steine and Metamizole may falsely depress this assay.Serum Triglycerides Reference Interval Normal <150 mg/dL Borderline high 150 - 199 mg/dL High 200 - 499 mg/dL Very High > or = 500 mg/dL WBC (Bld) [#/Vol] 5.9 10*3/uL 4.4-11.0 [facility] Work Phone: Blood erythrocytes count (nu mber/volume)on 07-09-2021 RBC (Bld) [#/Vol] 5.04 10*6/uL 4.6-6.2 [facility]: Blood hemoglobin measurement (mass/volume)on 07-09-2021 Hemoglobin (Bld) [Mass/Vol] 15.8 g/dL 13.0-16.5 [facility] Work Phone: Blood lymphocytes/100 leukoc yteson 07-09-2021 Lymphocytes/100 WBC (Bld) 26.3 % 19-41 [facility] Work Phone: Blood monocytes/100 leukocyt eson 07-09-2021 Monocytes/100 WBC (Bld) 9.5 % 0-10 [facility] Work Phone: Blood platelet mean volumeon 07-09-2021 Platelet mean volume (Bld) [Entitic vol] 10.6 fL 6.2-12.0 [facility] Work Phone: Determination of erythrocyte mean corpuscular volume (MCV)on 07-09-2021 MCV (RBC) [Entitic vol] 91.5 fL 80-94 [facility] Work Phone: Hematocrit Auto (Bld) [Volum e fraction]on 07-09-2021 Hematocrit (Bld) [Volume fraction] 46.1 % 40-54 [facility] Work Phone: Iron measurement (mass/mass) on 07-09-2021 Iron (Unsp spec) [Mass/Mass] 118 ug/dL 65-175 [facility] Work Phone: Laboratory - Chemistry and C hemistry - challengeon 07-09-2021 ALP [Catalytic activity/Vol] 51 U/L 45-117 [facility] Work Phone: ALT [Catalytic activity/Vol] 54 U/L 16-61 [facility] Work Phone: CO2 [Moles/Vol] 26.0 mmol/L 21.0-32.0 [facility] Work Phone: Globulin (S) [Mass/Vol] 3.3 g/dL 2.2-4.2 [facility] Work Phone: Urea nitrogen/Creatinine [Mass ratio] 14.3 mg/mg 10-20 [facility] Work Phone: Laboratory - Hematology and Cell countson 07-09-2021 Erythrocyte distribution width (RBC) [Entitic vol] 48.7 fL 35.1-43.9 [facility] Work Phone: Erythrocyte distribution width (RBC) [Ratio] 14.4 % 11.6-14.6 [facility] Work Phone: Immature granulocytes/100 WBC (Bld) 0.200 % 0.0-0.9 [facility] Work Phone: Comment on above: IG% - Immature Granu locytes (promyelocytes, myelocytes and metamyelocytes) > 1% indicates that a LEFT SHIFT is Present. MCH (RBC) [Entitic mass] 31.3 pg 27.0-32.0 [facility] Work Phone: Nucleated RBC/100 WBC (Bld) [Ratio] 0 % 0-5 [facility] Work Phone: MCHC Auto (RBC) [Mass/Vol]on 07-09-2021 MCHC (RBC) [Mass/Vol] 34.3 g/dL 32-36 [facility]: No Panel Informationon 07-09 Estimated GFR (MDRD) Amer 114 mL/min >60 [facility] Work Phone: Comment on above: GFR Calc Estimated GFR (MDRD) Non-Af Amer 95 mL/min >60 [facility] Work Phone: Comment on above: Non- GFR Calc Prostate Specific Antigen Screen 2.21 ng/mL 0.00-4.00 [facility] Work Phone: Comment on above: This test was perfor med using the TPSA assay method for [employer] chemistry system. Values obtained with differentassay methods cannot be used interchangably.When changing PSA assays in the course of monitoring apatient, additional sequential testing should be carriedout to confirm baseline values. Thyroid Stimulating Hormone (TSH) 2.57 uIU/mL 0.358-3.74 [facility] Work Phone: Platelets bldon 07-09-2021 Platelets (Bld) [#/Vol] 221 10*3/uL 150-450 [facility] Work Phone: Serum or plasma albumin rivas urement (mass/volume)on 07-09-2021 Albumin [Mass/Vol] 3.5 g/dL 3.2-5.0 [facility] Work Phone: Serum or plasma albumin/glob ulin mass ratioon 07-09-2021 Albumin/Globulin [Mass ratio] 1.1 {ratio} 0.9-2.4 [facility] Work Phone: Serum or plasma calcium rivas urement (mass/volume)on 07-09-2021 Calcium [Mass/Vol] 8.6 mg/dL 8.5-10.1 [facility] Work Phone: Serum or plasma cholesterol in HDL measurement (mass/volume)on 07-09-2021 Cholesterol in HDL [Mass/Vol] 31 mg/dL [facility] Work Phone: Comment on above: The drugs N-Acetylcy steine and Metamizole may falsely depress this assay. Reference Range HDL <40 mg/dL Low HDL Cholesterol HDL >or= 60 mg/dL High HDL Cholesterol Serum or plasma cholesterol in VLDL measurement (mass/volume)on 07-09-2021 Cholesterol in VLDL [Mass/Vol] 44 mg/dL 5-40 [facility] Work Phone: Serum or plasma creatinine m easurement (mass/volume)on 07-09-2021 Creatinine [Mass/Vol] 0.91 mg/dL 0.70-1.30 [facility] Work Phone: Comment on above: The validity of the calculated GFR & GFRAA in patients over 70 years has not been determined. Clinical correlation is essential. Serum or plasma low density lipoprotein (LDL) cholesterol measurement (mass/volume)on 07-09-2021 Cholesterol in LDL [Mass/Vol] 73 mg/dL 0-130 [facility] Work Phone: Serum or plasma urea nitroge n measurement (mass/volume)on 07-09-2021 Urea nitrogen [Mass/Vol] 13 mg/dL 7-18 [facility] Work Phone: Thin prep Papanicolaou smear with manual screeningon 07-09-2021 Thin prep Papanicolaou smear with manual screening 39 U/L 15-37 [facility] Work Phone: Thin prep Papanicolaou smear with manual screening 4 5-15 [facility] Work Phone: URINE CULTUREon 03-12-2019 Bacteria identified Cx Nom (U) NO GROWTH AFTER 48 HOURS Normal [facility] Comment on above: Performed By: #### M [id number] #### [facility] [address] [place] [address] Vital Signs Date Time Vital Sign Value Performing Clinician Facility 03-28-2023 13:28-0500 Body temperature 97 [degF] [facility] 03-28-2023 13:28-0500 Diastolic blood pressure 71 mm[Hg] [facility] 03-28-2023 13:28-0500 Heart rate 66 /min [facility] 03-28-2023 13:28-0500 Respiratory rate 16 /min [facility] 03-28-2023 13:28-0500 SaO2% (BldA) [Mass fraction] 97 % [facility] 03-28-2023 13:28-0500 Systolic blood pressure 130 mm[Hg] [facility] 03-28-2023 06:32-0500 Body height 190.5 cm [facility] 03-28-2023 06:32-0500 Body mass index (BMI) [Ratio] 34.1 kg/m2 [facility] 03-28-2023 06:32-0500 Body weight 124 kg [facility] 06-11-2021 16:52-0400 Body temperature 97.81 [degF] Anup Lewis MD Work Phone: [facility] 06-11-2021 16:52-0400 Body weight 126.61 kg Anup Lewis MD Work Phone: [facility] 06-11-2021 16:52-0400 Diastolic blood pressure 71 mm[Hg] Anup Lewis MD Work Phone: [facility] 06-11-2021 16:52-0400 Heart rate 79 /min Anup Lewis MD Work Phone: [facility] 06-11-2021 16:52-0400 Respiratory rate 14 /min Anup Lewis MD Work Phone: [facility] 06-11-2021 16:52-0400 Systolic blood pressure 135 mm[Hg] Anup Lewis MD Work Phone: [facility] Encounters Encounter Date Encounter Type Care Provider Facility Start: 04-05-2024 End: 04-05-2024 ambulatory Lexy Miedel Facility:[facility] Start: 03-22-2024 End: 03-22-2024 ambulatory Abdullahi Wilder Facility:[facility] Start: 02-19-2024 End: 02-19-2024 ambulatory Lexy Miedel Facility:[facility] Start: 10-01-2023 End: 10-01-2023 ambulatory Lexy Miedel Facility:[facility] Start: 09-18-2023 End: 09-18-2023 ambulatory Lexy Miedel Facility:[facility] Start: 06-16-2023 End: 06-16-2023 ambulatory Lexy Miedel Facility:[facility] Start: 05-08-2023 End: 05-08-2023 ambulatory [facility] Work Phone: Start: 05-08-2023 End: 05-08-2023 Patient encounter procedure [facility] Work Phone: Start: 05-08-2023 End: 05-08-2023 ambulatory [facility] Facility:[facility] Start: 03-28-2023 End: 03-28-2023 Admission to same day surgery center [facility] Start: 03-28-2023 End: 03-28-2023 ambulatory [facility] Work Phone: Start: 03-03-2023 End: 03-03-2023 ambulatory [facility] Work Phone: Start: 03-03-2023 End: 03-03-2023 Patient encounter procedure [facility] [place] Work Phone: Start: 01-16-2023 End: 01-16-2023 ambulatory [facility] Work Phone: Start: 01-16-2023 End: 01-16-2023 Patient encounter procedure [facility] [place] Work Phone: Start: 12-16-2022 End: 12-16-2022 ambulatory [facility] Work Phone: Start: 12-16-2022 End: 12-16-2022 Patient encounter procedure [facility] [place] Work Phone: Start: 10-31-2022 End: 10-31-2022 ambulatory [facility] Work Phone: Start: 10-31-2022 End: 10-31-2022 Patient encounter procedure [facility] Work Phone: Start: 09-19-2022 End: 09-19-2022 ambulatory [facility] Work Phone: Start: 09-19-2022 End: 09-19-2022 Patient encounter procedure [facility] [place] Start: 08-05-2022 Marcus dent APRN.[employer] Work Phone: Pain Management Comment on above: Refill Request Start: 02-04-2022 Telephone encounter Jose Luis Brown Sesar PEGGY [facility] Comment on above: Lab Orders (Due for TSH) Start: 12-05-2021 Chart abstracting Anup Lewis MD Work Phone: [facility] Start: 07-09-2021 End: 07-09-2021 Patient encounter procedure [facility] [place] Procedures Date Procedure Procedure Detail Performing Clinician Start: 05-08-2023 Anaerobic microbial culture Start: 05-08-2023 Investigation of tra nsfusion reaction Start: 05-08-2023 Microbial culture, routine Start: 03-28-2023 X-ray of both feet Start: 03-28-2023 Foot repair Start: 03-28-2023 Fluoroscopic guidance Start: 03-28-2023 X-ray of both feet Start: 01-16-2023 Plain X-ray of shoulder Start: 10-31-2022 MRI of lower extremity Plan of Treatment Date Care Activity Detail Author Start: 03-28-2023 Anes open proc bones lower leg/ankle/foot nos ANESTH LOWER LEG BONE SURG [facility] Start: 03-28-2023 Open treatment metatarsal fracture each TREAT METATARSAL FRACTURE [facility] Start: 03-28-2023 Osteot w/wo lngth shrt/corrj metar xcp 1st ea INCISION OF METATARSAL [facility] Start: 03-28-2023 Rpr tdn flxr foot 1/2 w/o free grafg each tendon REPAIR OF FOOT TENDON [facility] Start: 03-28-2023 X-ray of both feet Foot min 3 Views [facility] Start: 03-28-2023 XR Foot GE 3 Views [facility] Start: 03-28-2023 Catheterization of vein [facility] Start: 03-28-2023 Elevation of foot of bed [facility] Start: 03-28-2023 Patient discharge [facility] Start: 03-28-2023 Procedure discontinued [facility] Start: 03-28-2023 Vital signs measurements [facility] Start: 03-28-2023 [facility] Start: 03-28-2023 X-ray of both feet Foot min 3 Views [facility] Start: 03-28-2023 XR Foot GE 3 Views [facility] Start: 11-29-2022 Influenza vaccination INFLUENZA (Season Ended) [facility] Start: 03-31-2022 DEPRESSION ASSESSMENT DEPRESSION ASSESSMENT [facility] Start: 11-29-2021 Influenza vaccination INFLUENZA (#1) [facility] Start: 03-31-2021 DEPRESSION ASSESSMENT DEPRESSION ASSESSMENT [facility] Start: 2019 COLOGUARD (FIT-DNA) COLOGUARD (FIT-DNA) [facility] Start: 2019 Colonoscopy COLONOSCOPY [facility] Start: 2019 COLORECTAL CANCER SCREENING COLORECTAL CANCER SCREENING [facility] Start: [address] COLONOGRAPHY [facility] Start: 2019 DIABETES SCREEN DIABETES SCREEN [facility] Start: 2019 FECAL OCCULT BLOOD FECAL OCCULT BLOOD [facility] Start: 2019 SIGMOIDOSCOPY SIGMOIDOSCOPY [facility] Start: 03-06-2010 LIPID SCREEN LIPID SCREEN [facility] Start: 1993 Urine microalbumin profile DTAP,TDAP,TD (1 - Tdap) [facility] Start: 02-24-1992 HIV SCREENING HIV SCREENING [facility] Start: 1986 Adult depression screening assessment DEPRESSION SCREENING [facility] Start: 1975 COVID-19 VACCINE (#1) COVID-19 VACCINE (#1) [facility] Start: 1975 HEPATITIS B (1 of 3 - 3-dose series) HEPATITIS B (1 of 3 - 3-dose series) [facility] Patient referral [facility] Work Phone: [facility] Immunizations Immunization Date Immunization Notes Care Provider Min bejarano 02-06-2010 influenza virus vacc ine, live, attenuated, for intranasal use Anup Lewis MD Work Phone: [facility] Payers Date Payer Category Payer Self-pay [id number] 2018 Private Health Insurance [facility] [employer] [id number] 2018-Present [phone] [address] [place] [address] O [id number] 2015 Private Health Insurance [facility] [id number] 2015 Private Health Insurance [id number] Unknown [id number] Unknown [id number] Unknown [id number] Unknown [id number] Unknown [id number] Unknown [id number] Unknown [id number] Unknown [id number] Social History Date Type Detail Facility Start: 08-24-2014 End: 03-18-2023 Tobacco smoking status NHIS Unknown if ever smoked [facility] Start: 12-13-2020 Rare [facility] Start: 08-24-2014 None [facility] Start: 08-24-2014 Spouse/ Signif icant Other [facility] Start: 08-24-2014 Non-smoker [facility] Start: 1975 Sex Assigned At Male [facility] Start: 08-19-2014 Tobacco smoking status NHIS Never smoked tobacco [facility] Work Phone: History of tobacco use Cigarette Smoker [facility] Work Phone: Start: 08-19-2014 Tobacco use and exposure Former smokeless tobacco user [facility] Work Phone: History of tobacco use Chews Tobacco [facility] Work Phone: Start: 04-07-2016 Alcohol intake Current drinke r of alcohol (finding) [facility] Start: 04-07-2016 Alcohol intake [facility] Start: 08-19-2014 History SDOH Alcohol Comment one drink every few months [facility] Start: 08-19-2014 Tobacco Comment stoped smokles s tobacco 10 years ago [facility] Start: 1975 Sex Assigned At Not on file [facility] Medical Equipment Procedure Code Equipment Code Equipment Origin al Text Equipment Identifier Dates Repair, plantar plate 2.0 MM X 11MM SNAP OFF SCREW FDA Start: 03-28-2023 Repair, plantar plate 2.0 [id number] SNAP OFF SCREW FDA Start: 03-28-2023 Repair, plantar plate 2.0 [id number] SNAP OFF SCREW FDA Start: 03-28-2023 Repair, plantar plate 2.5 MM FT COMPRESSION SCREW, 44 MM FDA Start: 03-28-2023 Repair, plantar plate ARTHREX 2.0 MM X12MM SNAP OFF SCREW FDA Start: 03-28-2023 Repair, plantar plate ARTHREX 2.0 MM X12MM SNAP OFF SCREW FDA Start: 03-28-2023 Goals Date Patient Goal Desired Activity /State Mental Status Date Assessment Result Facility 03-28-2023 Cognitive function Voice/Name [facility] [facility] Work Phone: Clinical Note 03-22-2024 Note Date & Type Note Facility 03-22-2024 Note [facility] Medical Records Department [address] [place] [address] History Physical Exam 03/22/24 0822 MR#: [id number] Acct: [id number] Name: GRACIELA JAIN Rep #: [id number] : 1975 49 From: Abdullahi Wilder MD PCP: Dr. Lexy Elizondo MD Status:[facility] Location: [place] [address] History and Physical Intake Vital Signs 03/28/2306:32 02/19/2408:31 Height 6 ft 3 in 6 ft 3 in Weight: 285 lb BMI 35.6 BP 164/84 H Blood Pressure Location Rt brachial Position Sitting Respiration 16 Intake Visit Reasons: LIPOMAS ON SHOULDER AND BEHIND EAR Chief Complaint: lipomas News Production Assistant Required: No Is patient in pain?: No Allergies No Known Allergies Allergy (Verified 02/19/24 08:31) Medications ???Medication ???Instructions ???Recorded ???Confirmed ???Type levothyroxine 75 mcg tablet 150 mcg PO DAILY 08/07/14 02/19/24 History metoprolol succinate 25 mg 25 mg PO 1500 08/22/14 02/19/24 History tablet,extended release 24 hr losartan 25 mg tablet 25 mg PO 1500 03/18/23 02/19/24 History tadalafil 10 mg tablet (Cialis) 10 mg PO QDAY PRN 02/19/24 02/19/24 History Have you fallen in the past year?: No PFSH Medical History Loss of hearing Wears glasses Thyroid disease Former smoker History of echocardiogram History of stress test Cardiology follow-up encounter History of irregular heartbeat Hypertension Hx of lipoma Surgical History S/P vasectomy History of toe surgery Hx of anterior cruciate ligament surgery History of lateral meniscus repair of right knee Hx of hand surgery History of laparoscopic cholecystectomy Family History Father Heart disease Hypertension CAD (coronary artery disease)Mother Hypertension Social History Smoking Status: Former smoker alcohol intake: current HPI HPI HPI: Patient is a 48-year-old male here for multiple lipomas. He has a lipoma behind his right ear as behind his right shoulder blade. The one behind his shoulder blade is very a large as has been growing for several years. The one behind his ear has been growing larger as well. ROS General General: No weight change, appetite, fatigue, colon cancer, breast cancer or weakness HEENT HEENT: No difficulty swallowing, eye injury, eye surgery, swollen glands or hoarseness Endo Endocrine: Yes thyroid disease; No diabetes mellitus, thyroid cancer, Hair loss, heat intolerance or cold intolerance Skin Skin: No rash or changing moles Breast Breast: No left breast lump, right breast lump, nipple discharge, breast pain, abnormal mammogram, abnormal US or breast enlargement Musc Musculoskeletal: Yes arthritis; No back problems, rheumatoid arthritis, gout or joint pain Cardio Cardiovascular: Yes high blood pressure; No murmur, pacemaker, heart disease, atrial fibrillation, heart attack, heart stent, palpitations, shortness of breat with exertion or chest pain Psych Psychiatric: No depression, anxiety or hearing voices Resp Respiratory: No shortness of breath, No sleep apnea, No cough, No COPD, No asthma, No emphysema and No wheezing Gastro Gastrointestinal: No abdominal pain, No nausea or vomiting, No diarrhea, No constipation, No blood in stool, No acid reflux, No hemorrhoids, No ulcers, No gallbladder problem and No black,tarry stools Ced Hematologic: No blood thinners, No blood disorders, No bleeding, No anemia and No blood clots Neuro Neurologic: No system reviewed and no additional complaints, except as documented, No as per HPI, No abnormal gait, No abnormal hearing, No abnormal movements, No abnormal speech, No behavioral changes, No burning sensations, No confusion, No convulsions, No disequilibrium, No dizziness, No localized weakness, No frequent falls, No headache(s), No lack of coordination, No loss of vision, No memory loss, No numbness, No other visual disturbances, No radicular pain, No restless legs, No sensory deficit, No syncope, No tingling, No tremor(s), No weakness and No other Exam Const General: cooperative Orientation: alert and oriented x3 [facility] Head: normal to inspection Neck Neck: normal visual inspection and full ROM Chest Chest palpation inspection: normal inspection of the chest Resp Effort Inspection: normal respiratory effort Auscultation: clear to auscultation bilaterally Cardio Rate: regular rate Rhythm: regular rhythm GI Inspection: non-distended Palpation: soft and nontender Skin General: no rashes or lesions noted Neuro General: patient alert and patient oriented x3 Extrem General: full ROM Psych Appearance: grossly normal Mental Status: mental status (more content not included)... [facility] Discharge summary 03-28-2023 Note Date & Type Note Facility 03-28-2023 Discharge summary Note Date/Time March 28, 2023 10:51am [facility] Medical Records Department [address] [place] [address] Instructions for Home/Discharge Instructions 03/28/23 1050 MR#: [id number] Acct: [id number] Name: GRACIELA JAIN Rep #:[id number] : 1975 48 From: Moshe Cantor DPM PCP: Dr. Lexy Elizondo MD Status:[facility] Discharge Instructions Diet Discharge Diet: Light diet - advance as tolerated Activity Discharge Activity: May Not Drive and Use Crutches Weight Bearing Status: No weight bearing (No weightbearing right foot) Keep extremity elevated above heart level: Right Leg (Keep right foot elevated for at least 50 minutes of every hour) Dressing / Incision Call your doctor if your incision/area has: Continuous Slow Oozing, Sudden Increased Bleeding and Foul Smelling Discharge Call your doctor if you observe: Fever of 101 or Higher, Shortness of breath, Chest pain, Increased palpitations (irregular heartbeat), Calf discomfort and Uncontrolled pain Change Dressing in: do not change dressing Remove Dressing in: do not remove dressing Cleanse incision/area with: Keep Dressing Clean & Dry Follow Up Care Please Follow Up With: Moshe Cantor DPM When: 1 week in office [facility], sooner if needed Test Results: Test results from this visit will be discussed in further detail at your follow-up appointment, if applicable. Discharge Plan Admission Attending Provider: Moshe Cantor Primary Care Provider: Lexy Elizondo Discharge Orders/Prescriptions Prescriptions: New oxycodone-acetaminophen [Percocet] 5-325 mg tablet 1 - 2 tab PO Q6H PRN (Reason: pain) 4 Days Qty: 24 0RF No Action levothyroxine 75 MCG tablet 150 mcg PO DAILY Patient Comments: thyroid metoprolol succinate 25 MG tablet 25 mg PO 1500 Patient Comments: high blood pressure/heart losartan 25 mg tablet 25 mg PO 1500 Referrals / Follow Up: Lexy Elizondo MD [Primary Care Provider] - Disposition Disposition (needs filled in before D/C Order can be placed): Home, Self Care 03/28/23 1051<Electronically signed by Moshe Cantor DPM>Moshe Cantor DPM CC: Dr. Lexy Elizondo MD ~ Signed [facility] Work Phone: Note 08-05-2022 Telephone Encounter - Jarvis Millan LPN - 08/05/2022 11:32 AM EDT Note Date & Type Note Facility 08-05-2022 Miscellaneous Notes Formattin g of this note is different from the original. Pharmacy amiandohart message requesting the following refill. Requested Prescriptions [...] be escript to mail order [facility]. Jarvis Millan LPN documented in this encounter [facility] Note 02-04-2022 Telephone Encounter - Jarvis Millan LPN - 02/04/2022 1:31 PM EST Note Date & Type Note Facility 02-04-2022 Miscellaneous Notes Formattin g of this note might be different from the original. Per Brian Lynne APRN patient is due for blood work to check his thyroid TSH level. Brian refilled patient Levothyroxine but said Graciela needs to get his TSH checked. I called patient and he did not answer. I left a message for patient to return call to office. Jarvis Millan LPN February 04, 2022 1:33 PM documented in this encounter [facility] Evaluation note Note Date & Type Note Facility Evaluation note No assessment information availa ble [facility] Work Phone: Evaluation note Note Date & Type Note Facility Evaluation note Diagnosis Acquired hypothyroidism Unspecified hypothyroidism documented in this encounter [facility] Discharge instructions Note Date & Type Note Facility Hospital Discharge instructions Additional Instructions Implant Used?: Yes ARTHRODOLFO [facility] Work Phone: Summary Purpose Family History No Family History Records Found Relationship Condition Age at Onset Recorded Date/T antony Unknown Family History?Heart Disease Unknown August 24, 2014 1:44pm Family History?Heart Disease Unknown August 24, 2014 1:44pm Family History?No pertinent history Unkno wn August 24, 2014 1:44pm Relationship Condition Age at Onset Recorded Date/T antony Unknown Family History?Heart Disease Unknown August 24, 2014 12:44pm Family History?Heart Disease Unknown August 24, 2014 12:44pm Family History?No pertinent history Unkno wn August 24, 2014 12:44pm Advance Directives No Advanced Directives Records Found Advance Directive Response Recorded Date/ Time Living Will No August 22, 2014 9 :30am Power of Relations Mgr No August 22, 2014 9:30am Advance Directive Response Recorded Date/ Time Living Will No August 22, 2014 8 :30am Power of Relations Mgr No August 22, 2014 8:30am Advance Directive Response Recorded Date/ Time Name of Medical Power of Relations Mgr SPOUSE March 18, 2023 2:05pm Living Will Yes March 18, 2 023 2:05pm Power of Relations Mgr Yes March 18, 2023 2:05pm Chief Complaint and Reason for Visit Chief Complaint PAIN IN RIGHT FOOT L OWER LEG Chief Complaint PAIN IN RIGHT FOOT L OWER LEG PAIN IN SHOULDERS WITH OVERHEAD MOTION Chief Complaint PAIN IN SHOULDERS WI TH OVERHEAD MOTION Chief Complaint PAIN IN SHOULDERS WI TH OVERHEAD MOTION Arthrodesis of second right hammer Chief Complaint PAIN IN SHOULDERS WI TH OVERHEAD MOTION Arthrodesis of second right hammer CELLUITIS Additional Source Comments (unrecognized sect ion and content) No Status Records FoundNo Status Records FoundNo Status Records Found INFORMATION SOURCE (unrecogn ized section and content) DATE CREATED AUTHOR 03/18/[address] [facility] Lucina layne Galva DATE CREATED AUTHOR AUTHOR'S ORGANIZ ATION 03/02/[address] [facility] Lucina ntcatherine DATE CREATED AUTHOR AUTHOR'S ORGANIZ ATION 04/22/2024 [facility] Goals (unrecognized section and content) Goals may be documented in a n alternate sectionGoals may be documented in an alternate sectionGoals may be documented in an alternate sectionGoals may be documented in an alternate sectionGoals may be documented in an alternate sectionGoals may be documented in an alternate section Source Comments (unrecognize d section and content) In the event this informatio n is protected by the Federal Confidentiality of Alcohol and Drug Abuse Patient Records regulations: The Federal rules restrict any use of the information to criminally investigate or prosecute any alcohol or drug abuse patient.[facility] the event this information is protected by the Federal Confidentiality of Alcohol and Drug Abuse Patient Records regulations: The Federal rules restrict any use of the information to criminally investigate or prosecute any alcohol or drug abuse patient.[facility] the event this information is protected by the Federal Confidentiality of Alcohol and Drug Abuse Patient Records regulations: The Federal rules restrict any use of the information to criminally investigate or prosecute any alcohol or drug abuse patient.[facility] the event this information is protected by the Federal Confidentiality of Alcohol and Drug Abuse Patient Records regulations: The Federal rules restrict any use of the information to criminally investigate or prosecute any alcohol or drug abuse patient.[facility] Care Teams (unrecognized sec tion and content) Supervisor Dog License Officer Relationship Specialty Start Date End Date Anup Lewis MD PCP - General Family Practice 02/19/11 Supervisor Dog License Officer Relationship Specialty Start Date End Date Anup Lewis MD PCP - General Family Medicine 02/19/11 Supervisor Dog License Officer Relationship Specialty Start Date End Date Anup Lewis MD PCP - General Family Medicine 02/19/11 Team Status: Active Member Role Status Dates Dr. Anup Lewis MD Family Provider Active Dr. Lexy Elizondo MD Primary Care Provider Active Team Status: Inactive Member Role Status Dates Dr. Lexy Elizondo MD Primary Care Prov ider, Attending Provider, Referring Provider Active Team Status: Inactive Member Role Status Dates Dr. Lexy Elizondo MD Primary Care Provider Active Dr. Moshe Cantor DPM Attending Provider, Referrin g Provider Active Reason for Visit (unrecogniz ed section and content) Reason Comments Lab Orders Due for TSH Reason Comments Refill Request FOR RECORDS PERTAINING [...] BE BASED ON THE PRIMARY CLINICAL RECORDS. [facility] [employer] [facility]. provides no warranty or guarantee of the accuracy or completeness of information in this document.
== END | disposition home or self-care (01) ==
LOC: BFHLAB 16:20
PROVIDERS: PCP Family Medicine; Visit Provider Family Medicine
DX: E53.8 Deficiency of other specified B group vitamins (principal); R53.83 Other fatigue
CPT/HCPCS: 36415; 82607; 84439; 84443; 85025